=== PATIENT | male | born 1950 | race Caucasian/White ===

== ENCOUNTER 2017-10-26 18:52 | Observation (INO) | payer OTHER ==
[~2017-10-26] VITALS: Ht 182.9 cm; Wt 88.9 kg
[~2017-10-26 18:52] MED LIST: ALLOPURINOL300 MG PO; AMLODIPINE BESYL5 MG PO; ATORVASTATIN CA10 MG PO; ENALAPRIL MALEA20 MG PO; GLIMEPIRIDE2 MG PO; GLIPIZIDE ER10 MG PO; HYDROCHLOROTHIA25 MG PO; LANTUS 3ML100 UNITS/ SQ; METFORMIN HCL1000 MG PO; OMEPRAZOLE40 MG PO; PRAMIPEXOLE D0.25 MG PO; VITAMIN D32000 UNIT PO
[2017-10-26 20:59] LABS: BASOPHILS % 0.4 % (0.0-1.0); BILIRUBIN,URINE NEGATIVE (NEGATIVE); CLARITY,URINE CLEAR (CLEAR); COLOR,URINE YELLOW (YELLOW); EOSINOPHILS # (AUTO) 0.2 (0.0-0.4); EOSINOPHILS % 2.2 % (0.0-6.0); HEMATOCRIT 39.7 % (38.2-49.6); HEMOGLOBIN 13.2 g/dL (14.0-18.0); KETONES,URINE NEGATIVE (NEGATIVE); LEUKOCYTE ESTERASE ,URINE NEGATIVE (NEGATIVE); LYMPHOCYTES # (AUTO) 2.1 (1.0-3.2); LYMPHOCYTES % 20.3 % (18.0-39.1); MEAN CORPUSCULAR HEMOGLOBIN 29.1 pg (28-32); MEAN CORPUSCULAR HGB CONC 33.2 g/dL (31-35); MEAN CORPUSCULAR VOLUME 87.4 fL (81-99); MONOCYTES # (AUTO) 0.7 (0.2-0.8); MONOCYTES % 6.5 % (4.4-11.3); NEUTROPHILS # (AUTO) 7.1 (2.1-6.9); NEUTROPHILS % 69.8 % (38.7-80.0); NITRITE,URINE NEGATIVE (NEGATIVE); PLATELET COUNT 226 x10e3/uL (140-360); PROTEIN,URINE DIPSTICK NEGATIVE (NEGATIVE); RED BLOOD COUNT 4.54 x10e6/uL (4.3-5.7); RED CELL DISTRIBUTION WIDTH 13.7 % (11.7-14.4); URINE UROBILINOGEN 0.2 mg/dL (0.2 - 1)
[2017-10-26 21:03] LABS: MUCUS,URINE MANY (RARE); RBC,URINE 0-5 /HPF (0-5); WBC,URINE (MAN) 0-5 /HPF (0-5)
[2017-10-26 21:09] LABS: INR 0.99; PROTHROMBIN TIME 13.6 seconds (11.9-14.5)
[2017-10-26 21:10] LABS: PARTIAL THROMBOPLASTIN TIME 32.3 seconds (23.8-35.5)
[2017-10-26 21:17] LABS: ALBUMIN 3.7 g/dL (3.5-5.0); ALBUMIN/GLOBULIN RATIO 0.7 (0.8-2.0); ANION GAP 17.9 mmol/L (8-16); CALCIUM 10.2 mg/dL (8.4-10.2); CREATININE, SERUM 1.64 mg/dL (0.72-1.25); POTASSIUM 3.9 mmol/L (3.5-5.1)
[2017-10-26 21:24] LABS: CREATINE KINASE MB 3.8 ng/mL (0.00-5.00)
[2017-10-26] MEDS ORDERED: LEVOFLOXACIN 500 MG TAB PO ONE (21:30)
[2017-10-26] MEDS ORDERED: DEXTROSE 50% SYRINGE 50 ML IV PRN (22:15)
[2017-10-26] MEDS ORDERED: IPRATROPIUM BROMIDE 0.02% 2.5 ML NEB NEB PRN (22:15)
[2017-10-26] MEDS ORDERED: ALBUTEROL SULF 0.083% NEB SOLN 3 ML NEB NEB PRN (22:15)
[2017-10-26] MEDS ORDERED: LEVOFLOXACIN 500MG/D5W 100ML 100 ML IV SCH (22:15)
--- NOTE | 2017-10-26 22:39 | Diagnostic Imaging Report ---
EXAM: CHEST SINGLE (NOT PORTABLE), AP 1 view DATE: 10/26/2017 8:18 PM Time stamp on exam: 2051 INDICATION: Cough, congestion COMPARISON: None available FINDINGS: LINES/TUBES: None LUNGS: Ill-defined nodular density measuring approximately 1.5 cm projected over the right lower lobe. Right lateral lung peripheral reticulation/scarring. Right lower lobe atelectasis. PLEURA: No effusions or pneumothorax. Mild right lateral pleural thickening. HEART AND MEDIASTINUM: The heart is within normal size limits. Nonspecific prominence of the bilateral rohit. BONES AND SOFT TISSUES: No acute findings. IMPRESSION: Nodular density measuring approximately 1.5 cm in the right lung base with adjacent reticulation and pleural thickening. Depending on patient's history, consider CT of the chest with IV contrast to evaluate for lung mass. Signed by: Dr. Jennifer Hyatt M.D. on 10/26/2017 10:35 PM
[2017-10-27] VITALS (9 sets, daily range): BP systolic 108–140; BP diastolic 65–89
--- NOTE | 2017-10-27 02:25 | Diagnostic Imaging Report ---
EXAM: CT CHEST WO DATE: 10/27/2017 1:33 AM Time stamp on exam: O 0142 hours INDICATION: Shortness of breath, cough, congestion COMPARISON: AP view of the chest October 26, 2017 TECHNIQUE: Multidetector CT scanning of the chest was performed. Coronal and sagittal multiplanar reformations were obtained. Routine protocol performed. IV Contrast: None CTDIvol has been reviewed. It is below the limits set by the Radiation Protocol Committee (RPC). FINDINGS: LUNGS AND AIRWAYS: The trachea and major bronchi are unremarkable. Peripheral reticulation and groundglass opacities in the upper lungs, predominantly in the right upper lung and to a lesser extent the right lower lobe. Small consolidation in the right middle lobe (accounts for nodular appearance on prior chest x-ray). PLEURA: No effusions or pneumothorax. HEART, MEDIASTINUM, VESSELS: Normal appearance. No mediastinal mass or lymphadenopathy. UPPER ABDOMEN: Normal MUSCULOSKELETAL: No acute findings. IMPRESSION: Right upper lobe predominant peripheral reticulation and groundglass opacities. Differential includes atypical infection, eosinophilic pneumonia or organizing pneumonia. Signed by: Dr. Jennifer Hyatt M.D. on 10/27/2017 2:22 AM
[2017-10-27] MEDS ORDERED: LEVOFLOXACIN 500MG/D5W 100ML 100 ML IV SCH (04:45)
[2017-10-27] MEDS ORDERED: SODIUM CHLORIDE 0.9% 1000ML 1,000 ML ONE (04:59)
[2017-10-27] MEDS: SODIUM CHLORIDE 0.9% 1000ML 1,000 ML IV SCH ×3 (05:11→21:46)
[2017-10-27 06:19] LABS: BASOPHILS % 0.5 % (0.0-1.0); EOSINOPHILS # (AUTO) 0.3 (0.0-0.4); EOSINOPHILS % 3.5 % (0.0-6.0); HEMATOCRIT 33.9 % (38.2-49.6); HEMOGLOBIN 11.3 g/dL (14.0-18.0); LYMPHOCYTES # (AUTO) 1.7 (1.0-3.2); MEAN CORPUSCULAR HGB CONC 33.3 g/dL (31-35); MEAN CORPUSCULAR VOLUME 86.9 fL (81-99); MONOCYTES # (AUTO) 0.6 (0.2-0.8); MONOCYTES % 7.3 % (4.4-11.3); NEUTROPHILS # (AUTO) 5.2 (2.1-6.9); NEUTROPHILS % 65.9 % (38.7-80.0); PLATELET COUNT 185 x10e3/uL (140-360); RED CELL DISTRIBUTION WIDTH 13.8 % (11.7-14.4)
[2017-10-27 06:45] LABS: ALBUMIN 2.9 g/dL (3.5-5.0); ALBUMIN/GLOBULIN RATIO 0.7 (0.8-2.0); ANION GAP 13.7 mmol/L (8-16); CALCIUM 9.2 mg/dL (8.4-10.2); CREATININE, SERUM 1.48 mg/dL (0.72-1.25); POTASSIUM 3.7 mmol/L (3.5-5.1)
[2017-10-27 06:53] LABS: CREATINE KINASE MB 3.1 ng/mL (0.00-5.00)
[2017-10-27] MEDS: INSULIN REGULAR, HUMAN 100 UNIT/1 ML 3ML VIAL SQ SCH ×5 (07:30→21:46)
[2017-10-27] MEDS ORDERED: ASPIRIN 81 MG ENTERIC COATED PO SCH (09:00)
[2017-10-27] MEDS ORDERED: BENZONATATE 100 MG CAP PO PRN (09:15)
[2017-10-27] MEDS: METHYLPREDNISOLONE SOD SUCC 40 MG/ML VIAL IV SCH ×2 (09:50→21:45)
[2017-10-27] MEDS: DOXYCYCLINE HYCLATE TABLET 100 MG TAB PO SCH ×2 (09:50→16:17)
--- NOTE | 2017-10-27 10:18 | History and Physical ---
PCP: Dr. Alfonso Santa CHIEF COMPLAINT: Cough and shortness of breath for the past week. HISTORY OF PRESENT ILLNESS: The patient is a pleasant, 66-year-old male for the past week having problem with upper respiratory symptoms. The patient basically came to the hospital for evaluation. He was seen by his PCP previously. The patient is otherwise stable at this time. He was having increasing coughing. He was given antibiotics. He came in and was evaluated. CT scan showed atypical pneumonia. The patient is otherwise stable at this time. PAST MEDICAL HISTORY: Hypertension, diabetes, restless legs syndrome. HOME MEDICATIONS: List reviewed. PAST SURGICAL HISTORY: Appendectomy. ALLERGIES: NO KNOWN ALLERGIES. SOCIAL HISTORY: Patient does not smoke or use alcohol. No recreational drugs. REVIEW OF SYSTEMS: Coughing, shortness of breath, wheezing. PHYSICAL EXAMINATION GENERAL: The patient is in no acute distress. He is awake. VITAL SIGNS: Temperature 98. Blood pressure 108/65. Pulse rate 97. Respirations 18. HEENT: Normocephalic, atraumatic. Sclerae anicteric. NECK: Supple grossly. PULMONARY: Diminished breath sounds with coarses and rhonchi. CARDIOVASCULAR: S1 and S2. Regular rate and rhythm. ABDOMEN: Soft, nontender. No distention. EXTREMITIES: No gross cyanosis or edema. NEUROLOGIC: There is no gross focal deficit. LABORATORY: WBC is 7.9, hemoglobin 11.3, hematocrit 33.9, platelets 185. Sodium is 135, potassium 3.7, chloride 100, bicarb 25, BUN 23, creatinine 1.4. Glucose is 226. IMPRESSION 1. Atypical pneumonia. 2. Reactive airway disease. 3. Wheezing. 4. Chest discomfort secondary to cough. PLAN: Continue with antibiotics, Levaquin 750 mg daily and doxycycline 1 mg daily. Nebulizer treatment, steroids, insulin sliding scale coverage. Resume home medications. Will monitor the patient closely. The patient already had echocardiogram ordered. Consultation with Dr. Breen. Job#: [id number]
[2017-10-27] MEDS ORDERED: LEVOFLOXACIN 750MG/D5W 150ML 150 ML IV SCH (15:15)
[2017-10-27 16:07] LABS: CREATINE KINASE MB 2.6 ng/mL (0.00-5.00)
--- NOTE | 2017-10-27 16:21 | Consultation ---
DATE OF CONSULTATION: October 27, 2017 October 27, 2017 CONSULTING PHYSICIAN: Dr. Tom Brown. REASON FOR CONSULTATION: Chest pain. HPI: This is a pleasant 66-year-old male that presented with shortness of breath, sore throat, and cough. According to him, for the last 2 weeks, he has been having sore throat, productive cough, chest pain on a scale of 5/10 with no radiation that felt like tightness, that he went to his PCP. At the PCP office, they did an EKG that shows sinus bradycardia with right bundle branch block and he was sent to the emergency room for evaluation. He denies any palpitation, any dizziness, or any diaphoresis. Troponin times 2 was negative. EKG showed normal sinus rhythm with right bundle branch block. BNP was 841. He did a chest x-ray that is showing some nodule density measuring 1.5 cm on the right lung base and CK was elevated. PAST MEDICAL HISTORY: Hypertension, gout, diabetes and hyperlipidemia. PAST SURGICAL HISTORY: Right rotator cuff surgery and appendectomy. FAMILY HISTORY: Positive for diabetes. SOCIAL HISTORY: No smoking, no drinking. Lives at home with . MEDICATIONS: See med list. ALLERGIES: HE IS NOT ALLERGIC TO ANY MEDICATION. REVIEW OF SYSTEMS: Negative except those mentioned above. PHYSICAL EXAMINATION VITAL SIGNS: Temperature 98, heart rate 90, blood pressure 112/77, respirations 18, oxygen saturation 96% on 2 liters nasal cannula. GENERAL: He is awake, alert, and oriented times 3. HEENT: Mucous membrane moist. NECK: Supple. LUNGS: Bilateral with decreased breath sounds. CARDIOVASCULAR: S1, S2 present. ABDOMEN: Soft. NEUROLOGIC: Intact. EXTREMITIES: With no edema. LABORATORY DATA: Sodium 135, potassium 3.7, chloride 100, CO2 of 25, BUN 23, creatinine 1.48, glucose 226. White blood cells 7.92, hemoglobin 11.3, hematocrit 33.9, platelet 185. PT 13.6, PTT 32.3, INR 0.99. IMPRESSION 1. Pneumonia. 2. Chest pain. 3. Possible congestive heart failure. 4. Renal insufficiency. 5. Diabetes. 6. Hypertension. ASSESSMENT AND PLAN: Will get an echo to assess the LV and the valve function. Will continue antibiotic per PCP. Will put him on some Lasix. Possible cardiac stress test down the line when he is stable. Further cardiac workup pending clinical course. Thank you for this consultation. DICTATED BY: ISH LITTLE NP Job#: [id number] PAT
[2017-10-27] MEDS ORDERED: PRAMIPEXOLE DIHYDROCHLORIDE 0.25 MG TAB PO SCH (21:00)
[2017-10-27] MEDS ORDERED: ATORVASTATIN 10 MG TAB PO SCH (21:00)
[2017-10-28] VITALS: BP 108/71
[2017-10-28] MEDS: ALBUTEROL/IPRATROPIUM 3 ML NEB NEB SCH ×2 (01:30→07:32)
[2017-10-28 04:00] VITALS: BP 122/85
[2017-10-28 06:10] LABS: BASOPHILS % 0.1 % (0.0-1.0); HEMATOCRIT 34.7 % (38.2-49.6); HEMOGLOBIN 11.4 g/dL (14.0-18.0); LYMPHOCYTES # (AUTO) 0.8 (1.0-3.2); LYMPHOCYTES % 8.2 % (18.0-39.1); MEAN CORPUSCULAR HEMOGLOBIN 28.6 pg (28-32); MEAN CORPUSCULAR HGB CONC 32.9 g/dL (31-35); MEAN CORPUSCULAR VOLUME 87.2 fL (81-99); MONOCYTES # (AUTO) 0.4 (0.2-0.8); MONOCYTES % 4.5 % (4.4-11.3); NEUTROPHILS # (AUTO) 8.4 (2.1-6.9); NEUTROPHILS % 86.4 % (38.7-80.0); PLATELET COUNT 187 x10e3/uL (140-360); RED BLOOD COUNT 3.98 x10e6/uL (4.3-5.7); RED CELL DISTRIBUTION WIDTH 13.4 % (11.7-14.4)
[2017-10-28 06:38] LABS: ANION GAP 11.3 mmol/L (8-16); CALCIUM 9.1 mg/dL (8.4-10.2); CREATININE, SERUM 1.44 mg/dL (0.72-1.25); POTASSIUM 4.3 mmol/L (3.5-5.1)
[2017-10-28] MEDS ORDERED: PANTOPRAZOLE SOD 40 MG TABEC PO SCH (07:30)
[2017-10-28 07:49] VITALS: BP 126/68
[2017-10-28 08:11] VITALS: BP 126/68
[2017-10-28] MEDS: INSULIN REGULAR, HUMAN 100 UNIT/1 ML 3ML VIAL SQ SCH (08:42)
[2017-10-28] MEDS ORDERED: ALBUTEROL SULF 0.083% NEB SOLN 3 ML NEB NEB PRN (08:45)
[2017-10-28] MEDS: METHYLPREDNISOLONE SOD SUCC 40 MG/ML VIAL IV SCH (08:56)
[2017-10-28] MEDS: DOXYCYCLINE HYCLATE TABLET 100 MG TAB PO SCH (08:57)
[2017-10-28] MEDS ORDERED: FUROSEMIDE INJ 10 MG/ML 2 ML VIAL IV SCH (09:00)
[2017-10-28] MEDS ORDERED: GLIMEPIRIDE 2 MG TAB PO SCH (09:00)
[2017-10-28] MEDS ORDERED: AMLODIPINE BESYLATE 5 MG TAB PO SCH (09:00)
[2017-10-28] MEDS ORDERED: ALLOPURINOL 300 MG TAB PO SCH (09:00)
[2017-10-28] MEDS ORDERED: ASPIRIN 81 MG ENTERIC COATED PO SCH (09:00)
[2017-10-28] MEDS ORDERED: METOPROLOL TARTRATE 25 MG TAB PO SCH (09:00)
[2017-10-28] MEDS ORDERED: INSULIN DETEMIR 100 UNIT/ML PEN SQ ONE (09:00)
--- NOTE | 2017-10-28 09:26 | Discharge Summary ---
PCP: Dr. Alfonso Santa UMBRELLA REPAIRER: Dr. Martin Breen FINAL DIAGNOSES: 1. Atypical pneumonia. 2. Dehydration. 3. Shortness of breath, much improved. SUMMARY: Patient is a 66-year-old male came in with basically pneumonia. CT scan showing that the patient has right upper lobe predominant peripheral reticular and ground-glass opacity consistent with infection, atypical pneumonia. Patient has responded to antibiotics. He is doing much better now. He is breathing much better. Cough has significantly improved. The patient is stable at this time. He had no chest pain. Patient will go home with the following instructions: Resume his home medications except for Norvasc 2.5 mg and hydrochlorothiazide. New prescriptions as follows: 1. Glucotrol XL 5 mg daily. 2. Norvasc 10 mg daily. 3. Levaquin 500 mg daily for 7 days. 4. Doxycycline monohydrate 100 mg twice a day for 7 days. 5. Cheratussin AC q.4h. p.r.n. for cough. 6. Mucinex 600 mg twice a day. 7. Proventil HFA 2 puffs q.4h. as needed for shortness of breath. 8. Prednisone 10 mg daily for 3 days. Discussed with the patient at length. He does want to go home. He can follow up with Dr. Breen as an outpatient for stress test if needed. The patient is otherwise stable. He will follow up with Dr. Breen. Echocardiogram showed 60% EF. Patient is stable and discharged home today. Job#: [id number]
[2017-10-28 11:40] VITALS: BP 124/70
[2017-12-09] MEDS ORDERED: AMLODIPINE BESY10 MG PO (17:56)
[2017-12-09] MEDS ORDERED: HYDROCHLOROTHIA25 MG PO (17:56)
[2017-12-09] MEDS ORDERED: ASPIRIN325 MG PO (17:56)
== END 2017-10-28 11:14 | disposition home or self-care (01) ==
LOC: ER 18:52 → ERHOLD 10-27 00:51 → UNDOADMOB 10-27 00:51 → ERHOLD 10-27 00:58 → IMCU 10-27 02:46
PROVIDERS: ADMIT Internal Medicine; ATTEND Internal Medicine
DX: J18.9 Pneumonia, unspecified organism (principal); J45.909 Unspecified asthma, uncomplicated; I10 Essential (primary) hypertension; E11.9 Type 2 diabetes mellitus without complications; E78.5 Hyperlipidemia, unspecified; N28.9 Disorder of kidney and ureter, unspecified; E86.0 Dehydration
CPT/HCPCS: 36415 ×3; 71010; 71250; 80048; 80053 ×2; 81001; 82550 ×2; 82553 ×2; 82948 ×2; 83690; 83735; 83880; 84484 ×2; 85025 ×3; 85610; 85730; 87070; 87086; 87205; 87400; 93005; 93306; 94640; 96361; 99284; G0378 ×2; J1940; J1956; J2920 ×2; J7030; 71045

== ENCOUNTER → 2017-11-19 | Outpatient (CLI) | payer OTHER ==
--- NOTE | 2017-11-19 08:46 | Diagnostic Imaging Report ---
PROCEDURE:CT CHEST WITHOUT CONTRAST COMPARISON:[facility], CT, CT CHEST WO, 10/27/2017, 1:40. INDICATIONS:Pneumonia TECHNIQUE: Routine protocol Volumetric CT abdomen and pelvis. No intravenous or enteric contrast. Multiplanar reformatted images. DLP: 533.88 mGy*cm FINDINGS: Lungs: Interval decrease in right upper lobe groundglass opacity, with interval development of peripheral, nodular left upper lobe groundglass opacity measuring about 1.6 x 1.8 cm (image 41, series 3). Interval increase and right lower lobe groundglass opacity (image 83, series 3) Focal consolidative airspace opacity within the peripheral right middle lobe (image 58, series 3) is unchanged. Airways: Mild diffuse bronchial wall thickening without bronchiectasis. Airways are patent. Pleura: Trace right pleural effusion versus focal pleural thickening (image 75, series 2) the increased from October 27, 2017 Lymph nodes: Normal Pulmonary arteries: Main pulmonary artery diameter 3.5 cm. Mild prominence of the intraparenchymal pulmonary arteries. Thoracic aorta and great vessels: Normal caliber. Mild prominence of the azygos vein. Heart and pericardium: Normal size. No pericardial effusion. Mild left anterior descending, circumflex and right coronary artery calcification. Subdiaphragmatic organs: Hepatomegaly. Spleen length 13 cm. Otherwise, normal Skeleton: Intact. Soft tissues: Normal CONCLUSION: Relative to October 27, 2017 there is interval development of new foci of groundglass opacity primarily within the peripheral left upper and right lower lobes, while right upper lobe groundglass opacity has decreased. Consolidative airspace opacity within the right middle lobe is stable. Overall, the findings continue to suggest organizing pneumonia, eosinophilic pneumonia or hypersensitivity pneumonitis. Dictated by: Vahe Okeefe M.D. on 11/19/2017 at 8:56 Electronically approved by: Vahe Okeefe M.D. on 11/19/2017 at 8:56
== END ==
LOC: RESP 07:18
PROVIDERS: ATTEND Internal Medicine
DX: R06.09 Other forms of dyspnea (principal)
CPT/HCPCS: 71250

== ENCOUNTER → 2017-12-10 | Day surgery (SDC) | payer OTHER ==
[2017-12-09 15:58] LABS: BASOPHILS # (AUTO) 0.1 (0.0-0.1); BASOPHILS % 0.5 % (0.0-1.0); EOSINOPHILS # (AUTO) 0.8 (0.0-0.4); HEMATOCRIT 34.1 % (38.2-49.6); HEMOGLOBIN 11.1 g/dL (14.0-18.0); LYMPHOCYTES # (AUTO) 1.6 (1.0-3.2); LYMPHOCYTES % 14.4 % (18.0-39.1); MEAN CORPUSCULAR HGB CONC 32.6 g/dL (31-35); MEAN CORPUSCULAR VOLUME 85.9 fL (81-99); MONOCYTES # (AUTO) 0.8 (0.2-0.8); NEUTROPHILS # (AUTO) 7.7 (2.1-6.9); NEUTROPHILS % 69.3 % (38.7-80.0); PLATELET COUNT 330 x10e3/uL (140-360); RED BLOOD COUNT 3.97 x10e6/uL (4.3-5.7)
[2017-12-09 16:10] LABS: INR 1.18; PARTIAL THROMBOPLASTIN TIME 30.9 seconds (23.8-35.5); PROTHROMBIN TIME 14.1 seconds (11.9-14.5)
[~2017-12-10] MED LIST changes: +AMLODIPINE BESY10 MG PO; +ASPIRIN325 MG PO; +EPINEPHRINE HCL INJ 1 MG/ML AMP ONE; +KETAMINE HCL INJ 50 MG/ML 10 ML VIAL ONE; +LIDOCAINE HCL 2% LOCAL INJ 5 ML SDV VIAL INJ ONE; +LIDOCAINE HCL 4% 50 ML BTL ONE; +LIDOCAINE JELLY 2% 10ML URO-JET ONE; +MIDAZOLAM HCL 2 MG/2 ML VIAL ONE; +OXYMETAZOLINE HCL 0.05% NAS 1 SPRAY BTL ONE; +PROPOFOL IV EMULSION 10 MG/ML 20 ML VIAL ONE; +SEVOFLURANE INHAL SOLN 250 ML PEN BTL ONE
--- OUTSIDE RECORDS SUMMARY | 2017-12-10 08:53 | XMS REPORT ---
Author Author [facility] Address Unknown Phone Unavailable Care Team Providers Care [facility] [place] Name Role Phone KEVIN SARGENT Unavailable Unavailable HIRAM ANDREWS Unavailable Unavailable LOUIS DENNY Unavailable Unavailable Problems This patient has no known problems. Allergies, Adverse Reactions, Alerts This patient has no known allergies or adverse reactions. Medications This patient has no known medications. Results Test Description Test Time Test Comments Text Results Atomic Results Result Comments CT CHEST WO [place] [address] Patient Name: ZAC HDEZ MR #: [id number] : 1950 Age/Sex: 66/M Req # : [id number] Adm Physician: Ordered by: KEVIN SARGENT MD Report #: [id number] Location: [facility] Room/Bed: Procedure: [id number] CT/CT CHEST WO Exam Date: 11/19/17 Exam Time: 0820 REPORT STATUS: Signed PROCEDURE: CT CHEST WITHOUT CONTRAST COMPARISON: [facility], CT, CT CHEST WO, 10/27/2017, 1:40. INDICATIONS: Pneumonia TECHNIQUE: Routine protocol Volumetric CT abdomen and pelvis. No intravenous or enteric contrast. Multiplanar reformatted images. DLP: 533.88 mGy*cm FINDINGS: Lungs: Interval decrease in right upper lobe groundglass opacity, with interval development of peripheral , nodular left upper lobe groundglass opacity measuring about 1.6 x 1.8 cm ( image 41, series 3). Interval increase and right lower lobe groundglass opacity (image 83, series 3) Focal consolidative airspace opacity within the peripheral right middle lobe (image 58, series 3) is unchanged. Airways : Mild diffuse bronchial wall thickening without bronchiectasis. Airways are patent. Pleura: Trace right pleural effusion versus focal pleural thickening (image 75, series 2) the increased from October 27, 2017 Lymph nodes: Normal Pulmonary arteries: Main pulmonary artery diameter 3.5 cm. Mild prominence of the intraparenchymal pulmonary arteries. Thoracic aorta and great vessels: Normal caliber. Mild prominence of the azygos vein. Heart and pericardium: Normal size. No pericardial effusion. Mild left anterior descending, circumflex and right coronary artery calcification. Subdiaphragmatic organs: Hepatomegaly. Spleen length 13 cm. Otherwise, normal Skeleton: Intact. Soft tissues: Normal CONCLUSION: Relative to October 27, 2017 there is interval development of new foci of groundglass opacity primarily within the peripheral left upper and right lower lobes, while right upper lobe groundglass opacity has decreased. Consolidative airspace opacity within the right middle lobe is stable. Overall, the findings continue to suggest organizing pneumonia, eosinophilic pneumonia or hypersensitivity pneumonitis. Dictated by: Dee Okeefe M.D. on 11/19/2017 at 8:56 Electronically approved by: Dee Okeefe M.D. on 11/19/2017 at 8:56 Dictated By: DEE OKEEFE MD 5 Transcribed By: KEY on 11/19/17 08 COPY TO: KEVIN SARGENT MD CT CHEST WO [place] [address] Patient Name: ZAC HDEZ MR #: [id number] : 1950 Age/Sex: 66/M Req # : [id number] Adm Physician: HIRAM ANDREWS MD Ordered by: FREDDY GONZALEZ MD Report #: [id number] Location: [facility] Room/Bed: [place] [address] __ Procedure: [id number] CT/CT CHEST WO Exam Date: 10/27/17 Exam Time: 0140 REPORT STATUS: Signed EXAM: CT CHEST WO DATE: 10/27/2017 1:33 AM Time stamp on exam: O 0142 hours INDICATION: Shortness of breath, cough, congestion COMPARISON: AP view of the chest October 26, 2017 TECHNIQUE: Multidetector CT scanning of the chest was performed. Coronal and sagittal multiplanar reformations were obtained. Routine protocol performed. IV Contrast: None CTDIvol has been reviewed. It is below the limits set by the Radiation Protocol Committee (RPC). FINDINGS: LUNGS AND AIRWAYS: The trachea and major bronchi are unremarkable. Peripheral reticulation and groundglass opacities in the upper lungs, predominantly in the right upper lung and to a lesser extent the right lower lobe. Small consolidation in the right middle lobe (accounts for nodular appearance on prior chest x-ray). PLEURA: No effusions or pneumothorax. HEART, MEDIASTINUM, VESSELS: Normal appearance. No mediastinal mass or lymphadenopathy. UPPER ABDOMEN: Normal MUSCULOSKELETAL: No acute findings. IMPRESSION: Right upper lobe predominant peripheral reticulation and groundglass opacities. Differential includes atypical infection, eosinophilic pneumonia or organizing pneumonia. Signed by: Dr. Horace Espinoza M.D. on 10/27/2017 2:22 AM Dictated By: HORACE ESPINOZA MD 1 Transcribed By: FREDY on 10/27/17221 COPY TO: FREDDY GONZALEZ MD CHEST [facility] (NOT PORTABLE) [place] [address] Patient Name: ZAC HDEZ MR #: [id number] : 1950 Age/Sex: 66/M Req #: [id number] Adm Physician: Ordered by: SHAILESH WEBER SEWING MACHINIST Report #: [id number] Location: ER Room/Bed: Procedure: [id number] DX/CHEST SINGLE (NOT PORTABLE) Exam Date: 10/26/17 Exam Time: 2044 REPORT STATUS: Signed EXAM: CHEST SINGLE (NOT PORTABLE), AP 1 view DATE: 10/26/2017 8:18 PM Time stamp on exam: 2051 hours INDICATION: Cough, congestion COMPARISON: None available FINDINGS: LINES/TUBES: None LUNGS: Ill-defined nodular density measuring approximately 1.5 cm projected over the right lower lobe. Right lateral lung peripheral reticulation/scarring. Right lower lobe atelectasis. PLEURA: No effusions or pneumothorax. Mild right lateral pleural thickening. HEART AND MEDIASTINUM: The heart is within normal size limits. Nonspecific prominence of the bilateral rohit. BONES AND SOFT TISSUES: No acute findings. IMPRESSION: Nodular density measuring approximately 1.5 cm in the right lung base with adjacent reticulation and pleural thickening. Depending on patient's history, consider CT of the chest with IV contrast to evaluate for lung mass. Signed by: Dr. Horace Espinoza M.D. on 10/26 10:35 PM Dictated By: HORACE ESPINOZA MD 34 Transcribed By: FREDY on 10/26/172234 COPY TO: SHAILESH WEBER SEWING MACHINIST CHEST 2 VIEWS [place] [address] Patient Name: ZAC HDEZ MR #: [id number] : 1950 Age/Sex: 66/M Req # : [id number] Adm Physician: Ordered by: LOUIS DENNY MD Report #: [id number] Location: OR Room/Bed: Procedure: [id number] DX/CHEST 2 VIEWS Exam Date: Exam Time: REPORT STATUS: Signed PROCEDURE: X-RAY CHEST, TWO VIEWS COMPARISON: None. INDICATIONS: PRE-OP. DENIES CHEST COMPLAINTS FINDINGS: The lungs are well-inflated. No focal airspace consolidation, pleural effusion, or pneumothorax. Cardiomediastinal contour and pulmonary vasculature are within normal limits. Rightward tracheal deviation at the thoracic inlet. No acute osseous abnormality. CONCLUSION: No acute cardiopulmonary abnormality. Mild rightward deviation of the trachea at the thoracic inlet may be related to hypertrophy of the left lobe of the thyroid. Further evaluation may be obtained with ultrasound if clinically warranted. Dictated by: Sil Bowman M.D. on 07/27/2017 at 14:23 Electronically approved by: Sil Bowman M.D. on 07/27/2017 at 14:23 Dictated By: SIL BOWMAN MD 1423 Transcribed By: KEY on 07/27/17 1423 COPY TO: LOUIS DENNY MD
[2017-12-10 09:54] LABS: BASOPHILS # (AUTO) 0.1 (0.0-0.1); BASOPHILS % 0.4 % (0.0-1.0); EOSINOPHILS # (AUTO) 0.8 (0.0-0.4); EOSINOPHILS % 6.9 % (0.0-6.0); LYMPHOCYTES % 17.2 % (18.0-39.1); MEAN CORPUSCULAR HEMOGLOBIN 28.3 pg (28-32); MEAN CORPUSCULAR HGB CONC 32.4 g/dL (31-35); MEAN CORPUSCULAR VOLUME 87.4 fL (81-99); MONOCYTES # (AUTO) 0.7 (0.2-0.8); MONOCYTES % 5.7 % (4.4-11.3); NEUTROPHILS # (AUTO) 7.7 (2.1-6.9); NEUTROPHILS % 67.7 % (38.7-80.0); PLATELET COUNT 348 x10e3/uL (140-360); RED BLOOD COUNT 3.89 x10e6/uL (4.3-5.7); RED CELL DISTRIBUTION WIDTH 14.1 % (11.7-14.4)
[2017-12-10 10:13] LABS: INR 1.27; PROTHROMBIN TIME 14.9 seconds (11.9-14.5)
[2017-12-10 10:14] LABS: PARTIAL THROMBOPLASTIN TIME 35.7 seconds (23.8-35.5)
[2017-12-10 12:17] LABS: EOSINOPHILS % (MANUAL) 7 % (0-7); LYMPHOCYTES % (MANUAL) 17 % (19-48); MONOCYTES % (MANUAL) 4 % (3.4-9.0); NEUTROPHILS % (MANUAL) 72 % (40-74)
[2017-12-10 12:21] LABS: ANISOCYTOSIS SLIGHT; HYPOCHROMASIA SLIGHT; POIKILOCYTOSIS SLIGHT
[2017-12-10 12:22] LABS: PLATELET ESTIMATE ADEQUATE; PLATELET MORPHOLOGY COMMENT NORMAL; RBC MORPHOLOGY COMMENT NORMAL
--- NOTE | 2017-12-10 12:44 | Operative Report ---
DATE OF PROCEDURE: December 10, 2017 PROCEDURE PERFORMED: Bronchoscopy with bronchoalveolar lavage. PREPROCEDURE DIAGNOSIS: Abnormal CT chest. POSTPROCEDURE DIAGNOSIS: Normal endobronchial airways. ANESTHESIA: General. PROCEDURE DETAILS: The bronchoscope was advanced through LMA. The vocal cords were identified. They were moving normally. The trachea was entered, which was normal. Both lungs were examined to the segmental level, and no endobronchial lesions were seen. BAL was done from right middle lobe, and it was sent for cell count, AFB, fungus, Gram stain and culture. COMPLICATIONS: None. Job#: [id number]
--- NOTE | 2017-12-10 12:56 | History and Physical ---
The patient is here for a bronchoscopy. HPI: Mr. Tillman is a 67-year-old male who had pneumonia in the beginning of October and was having increasing symptoms with cough. Repeat CT showed evidence of ground-glass nodule with area of consolidation. Today he will undergo bronchoscopy. PAST MEDICAL HISTORY: Hypertension, diabetes, hyperlipidemia. PAST SURGICAL HISTORY: Right rotator cuff surgery and appendectomy. FAMILY AND SOCIAL HISTORY: He does not smoke. He does not drink. He lives with . PHYSICAL EXAMINATION VITAL SIGNS: Temperature 97.8, pulse 74, blood pressure 124/70. CHEST: Clear. ABDOMEN: Soft. EXTREMITIES: No clubbing, cyanosis or edema. NEUROLOGIC: Awake, alert. No focal neurological deficit. EXTREMITIES: No pedal edema. LABS: White count 11,000, hemoglobin 11.0, platelets 348. Last chemistry is from October 2017. Creatinine was 1.4. ASSESSMENT: Mr. Tillman is a 67-year-old male here for bronchoscopy. PLAN: Bronchoscopy will be performed today. Job#: [id number]
[2017-12-10 13:36] LABS: RBC,BODY FLUID 522 cells/uL; WBC,BODY FLUID 110 cells/uL
[2017-12-10 13:37] LABS: BODY FLUID APPEARANCE SL.CLOUDY; BODY FLUID TYPE BRONCHIAL WASHING
[2017-12-10 14:59] LABS: LYMPHOCYTES,BODY FLUID 18 %; MONO/MACROPHG,BODY FLUID 5 %; OTHER CELLS,BODY FLUID 67 %
[2017-12-10 15:02] LABS: NEUTROPHILS,BODY FLUID 10 %
== END | disposition home or self-care (01) ==
LOC: ENDO 08:51
PROVIDERS: ATTEND Internal Medicine
DX: R91.8 Other nonspecific abnormal finding of lung field (principal); J84.89 Other specified interstitial pulmonary diseases; I10 Essential (primary) hypertension; E11.9 Type 2 diabetes mellitus without complications; K75.9 Inflammatory liver disease, unspecified; B19.20 Unspecified viral hepatitis C without hepatic coma; I45.10 Unspecified right bundle-branch block; Z01.812 Encounter for preprocedural laboratory examination; Z79.82 Long term (current) use of aspirin
CPT/HCPCS: 31624; 36415 ×2; 82948; 85025 ×2; 85610 ×2; 85730 ×2; 87102; 87116 ×2; 87205; 87206 ×3; 87335; 89051; J2001; J2250; 31623; 88112; 88305; J0171

== ENCOUNTER 2020-08-31 | Emergency (ER) | payer MEDICARE, OTHER ==
[~2020-08-31] VITALS: Ht 182.9 cm; Wt 105.2 kg
[~2020-08-31] MED LIST changes: -EPINEPHRINE HCL INJ 1 MG/ML AMP ONE; -KETAMINE HCL INJ 50 MG/ML 10 ML VIAL ONE; -LIDOCAINE HCL 2% LOCAL INJ 5 ML SDV VIAL INJ ONE; -LIDOCAINE HCL 4% 50 ML BTL ONE; -LIDOCAINE JELLY 2% 10ML URO-JET ONE; -MIDAZOLAM HCL 2 MG/2 ML VIAL ONE; -OXYMETAZOLINE HCL 0.05% NAS 1 SPRAY BTL ONE; -PROPOFOL IV EMULSION 10 MG/ML 20 ML VIAL ONE; -SEVOFLURANE INHAL SOLN 250 ML PEN BTL ONE
[2020-08-31] MEDS ORDERED: SODIUM CHLORIDE 0.9% 1000ML 1,000 ML IV STA (00:15)
[2020-08-31 00:21] LABS: BASOPHILS # (AUTO) 0.1 (0.0-0.1); BASOPHILS % 0.7 % (0.0-1.0); EOSINOPHILS # (AUTO) 0.2 (0.0-0.4); HEMATOCRIT 39.9 % (38.2-49.6); HEMOGLOBIN 13.4 g/dL (14.0-18.0); LYMPHOCYTES # (AUTO) 3.3 (1.0-3.2); LYMPHOCYTES % 26.9 % (18.0-39.1); MEAN CORPUSCULAR HEMOGLOBIN 30.7 pg (28-32); MEAN CORPUSCULAR HGB CONC 33.6 g/dL (31-35); MEAN CORPUSCULAR VOLUME 91.5 fL (81-99); MONOCYTES # (AUTO) 0.9 (0.2-0.8); MONOCYTES % 7.7 % (4.4-11.3); NEUTROPHILS # (AUTO) 7.6 (2.1-6.9); NEUTROPHILS % 61.8 % (38.7-80.0); PLATELET COUNT 179 x10e3/uL (140-360); RED BLOOD COUNT 4.36 x10e6/uL (4.3-5.7); RED CELL DISTRIBUTION WIDTH 13.5 % (11.7-14.4)
--- NOTE | 2020-08-31 00:22 | Emergency Department Note ---
History of Present Illnes History of Present Illness History of Present Illness This is a 69 year old male here with concern of generalized weakness/dizziness with lower abdominal pain and constipation. Patient states that he's been constipated over the last week or so, he is taking mineral oil enema without resolution. Patient told his PCP who got him a GI appointment for colonoscopy. Patient has a colonoscopy appointment in September. Patient was told to take fiber, has not taken fiber. Patient with mild to moderate abdominal pain, no modifying factors. Patient also with generalized weakness/dizziness, no neurologic deficits, no ataxia, feels like he is "dehydrated". No chest pain or shortness of breath, no syncope. Historian: Patient Arrival Mode: Car Onset (how long ago): week(s) (1) Location: lower abd Quality: ache Radiation: Reports non-radiation Severity: moderate Onset quality: gradual Duration (how long): week(s) (1) Timing of current episode: constant Progression: worsening Chronicity: new Context: Reports new medications, Reports non-compliance w/ medications Relieving factors: none Exacerbating factors: none Associated symptoms: Reports denies other symptoms, Reports other (no urinary complaints, last BM was 1 day ago); Denies fever/chills, Denies nausea/vomiting Past Medical/Family History Physician Review I have reviewed the patient's past medical and family history. Any updates have been documented here. Past Medical History Other Medical History: GOUT, CHOLESTEROL Other Last Tetanus: NA Review of Systems Review of Systems Constitutional: Reports as per HPI EENTM: Reports no symptoms Cardiovascular: Reports no symptoms Respiratory: Reports no symptoms Gastrointestinal: Reports as per HPI Genitourinary: Reports no symptoms Musculoskeletal: Reports no symptoms Integumentary: Reports no symptoms Neurological: Reports no symptoms Psychological: Reports no symptoms Endocrine: Reports no symptoms Hematological/Lymphatic: Reports no symptoms Physical Exam Related Data Allergies: Coded Allergies: No Known Allergies (Unverified , 07/03/13) Vital signs reviewed: Yes Physical Exam CONSTITUTIONAL Constitutional: Present well-developed, Present well-nourished HENT HENT: Present normocephalic, Present atraumatic, Present oropharynx clear/moist, Present nose normal HENT L/R: Present left ext ear normal, Present right ext ear normal EYES Eyes: Reports PERRL, Reports conjunctivae normal NECK Neck: Present ROM normal PULMONARY Pulmonary: Present effort normal, Present breath sounds normal CARDIOVASCULAR Cardiovascular: Present regular rhythm, Present heart sounds normal, Present capillary refill normal, Present normal rate GASTROINTESTINAL Abdominal: Present soft, Present bowel sounds normal, Present tender (chest superficial lower abdomen or peritonitis.) GENITOURINARY Genitourinary: Present exam deferred SKIN Skin: Present warm, Present dry MUSCULOSKELETAL Musculoskeletal: Present ROM normal NEUROLOGICAL Neurological: Present alert, Present oriented x 3, Present no gross motor or sensory deficits PSYCHOLOGICAL Psychological: Present mood/affect normal, Present judgement normal Results Laboratory Lab results reviewed: Yes Imaging Imaging results reviewed: Yes Assessment & Plan Medical Decision Making MDM Since a 69-year-old male that comes in with lower abdominal pain and difficulty passing stool for the last week. We'll do lab work, CT of the abdomen given his pain. A CT is normal and labs are normal, we'll prescribe MiraLAX for his constipation. Patient also with generalized weakness and fatigue, we'll check electrolytes and CBC to rule out anemia and a cardiac workup. EKG interpreted by me shows normal sinus rhythm with a right bundle branch morphology QRS prolonged at 148 normal axis EKG otherwise nondiagnostic. No neurologic deficits, patient feels "dehydrated ". We'll hydrate patient, ambulate Reassessment Reassessment Patient has been using the restroom 2 here, we'll continue treatment at home.If to return if worsening. Pt with resolution of dizziness after fluids. Assessment & Plan Final Impression: (1) Abdominal pain (2) Constipation by delayed colonic transit (3) Dizziness (4) Hyperglycemia Depart Disposition: HOME, SELF-USP Meds Active Scripts Peg 3350/Na Sulf,Bicarb,Cl/Kcl (GOLYTELY SOLUTION) 4,000 Ml Soln.recon, 4000 ML PO as directed for 1 Day, #4000 ML Prov:LEONOR ANTOINE MD 08/31/20 Reported Medications Aspirin (ASPIRIN) 325 Mg Tablet, 325 MG PO DAILY, #30 TAB 12/09/17 Amlodipine Besylate (AMLODIPINE BESYLATE) 10 Mg Tablet, 10 MG PO BID, #30 TAB 12/09/17 Hydrochlorothiazide (HYDROCHLOROTHIAZIDE) 25 Mg Tablet, 25 MG PO DAILY, #30 TAB 12/09/17 Glimepiride (GLIMEPIRIDE) 2 Mg Tablet, 1 MG PO DAILY, TAB 07/28/17 Pramipexole Di-Hcl (PRAMIPEXOLE DIHYDROCHLORIDE) 0.25 Mg Tablet, 0.5 MG PO HS 07/28/17 Cholecalciferol (Vitamin D3) (VITAMIN D3) 2,000 Unit Capsule, 2000 UNIT PO BID 07/28/17 Omeprazole (OMEPRAZOLE) 40 Mg Capsule.dr, 40 MG PO DAILY 07/28/17 Atorvastatin Calcium (ATORVASTATIN CALCIUM) 10 Mg Tablet, 10 MG PO 2100, #30 TAB 07/28/17 Metformin Hcl (METFORMIN HCL) 1,000 Mg Tablet, 1000 MG PO BID 07/08/13 Enalapril Maleate (ENALAPRIL MALEATE) 20 Mg Tablet, 20 MG PO BID 07/03/13 Allopurinol (ALLOPURINOL) 300 Mg Tablet, 300 MG PO DAILY 07/03/13 Medications in the ED Sodium Chloride 1,000 ml @ 0 mls/hr Q0M STAT IV ; Start 08/31/20 at 00:15; Stop 08/31/20 at 00:16 LEONOR ANTOINE MD Aug 31, 2020 00:22
[2020-08-31 00:41] LABS: ALBUMIN 4.4 g/dL (3.5-5.0); ALBUMIN/GLOBULIN RATIO 1.1 (0.8-2.0); ANION GAP 16.5 mmol/L (8-16); CALCIUM 9.9 mg/dL (8.4-10.2); CREATININE, SERUM 1.47 mg/dL (0.72-1.25); POTASSIUM 4.5 mmol/L (3.5-5.1)
[2020-08-31] MEDS ORDERED: IOPAMIDOL 370 MG/ML 200 ML INFUS..BTL INJ ONE (01:08)
[2020-08-31] MEDS ORDERED: SODIUM CHLORIDE 0.9% 50ML 50 ML ONE (01:08)
--- OUTSIDE RECORDS SUMMARY | 2020-08-31 02:05 | XMS REPORT | Continuity of Care Document ---
Author Author [facility] t Organization [facility] Address [address] [place] [address] Phone Unavailable Care Team Providers Care Gas Plumbing Inspector Name Role Phone KEVIN SARGENT Attphys Unavailable JEANG, K HIRAM Attphys Unavailable LOUIS DENNY Attphys Unavailable JEANG, K HIRAM Admphys Unavailable Payers Payer Name Policy Type Policy Number Effective Date Expiration Date S ource Problems This patient has no known problems. Allergies, Adverse Reactions, Alerts Allergy Name Allergy Type Status Severity Reaction(s) Onset Date Inacti ve Date Treating Clinician Comments Source No Known Allergies DA Active U 2019-05-21 00:00:00 [facility] No Known Allergies DA Active U 2016-04-30 00:00:00 [facility] Medications This patient has no known medications. Procedures This patient has no known procedures. Results Test Description Test Time Test Comments Results Result Comments Source GLUBED 2020-02-19 20:37:00 Test Item GLUBED (test code = GLUBED) 334 mg/dL 74-106 H Performed by certified control operator at [facility] [id number] 20:00:00* Test Item Value Reference Range Interpretation Comments GLUBED (test code = GLUBED) 367 mg/dL 74-106 H Performed by certified control operator at [facility] [id number] 19:03:00* Test Item Value Reference Range Interpretation Comments LIPASE (test code = LIP) 198 U/L 128-270 N URINALYSIS W/O [id number] 19:02:00* Test Item Value Reference Range Interpretation Comments UA COLOR (test code = COLU) YELLOW YELLOW UA APPEARANCE (test code = APPU) CLEAR CLEAR UA GLUCOSE DIPSTICK (test code = DGLUU) 1000 (3+) mg/dL NEGATIVE A UA BILIRUBIN DIPSTICK (test code = BILU) NEGATIVE mg/dL NEGATIVE UA KETONE DIPSTICK (test code = KETU) neg mg/dL NEGATIVE UA SPECIFIC GRAVITY (test code = SGU) 1.015 1.001-1.035 UA BLOOD DIPSTICK (test code = LEAH) neg Wyatt/uL NEGATIVE UA PH DIPSTICK (test code = ISAAC) 5.0 5.0-8.0 UA PROTEIN DIPSTICK (test code = PROU) neg mg/dL Neg-15 UA UROBILINIOGEN DIPSTICK (test code = URO) norm mg/dL 0.0-0.2 UA NITRITE DIPSTICK (test code = JENNIFER) NEGATIVE NEGATIVE UA LEUKOCYTE ESTERASE DIPSTICK (test code = LEUU) neg uL NEGA TIVE UA MICROSCOPIC NEEDED? (test code = UAMICRO) NO, NOT INDICATED UA MICROSCOPIC NOT INDICATED UA MICROSCOPIC EXAMS ARE NOT PERFORMED UNLESS ONE OF THECHEMICAL TESTS OR VISUAL EXAMINATION IS ABNORMAL. THE MICROSCOPIC EVALUATIONS ARE PERFORMED ON ALL ABNORMALRESULTS AND/OR WHEN SPECIFICALLY ORDERED BY A PHYSICIAN. COMPREHENSIVE METABOLIC [id number] 19:02:00* Test Item Value Reference Range Interpretation Comments SODIUM (test code = NA) 128 mmol/L 136-145 L POTASSIUM (test code = K) 5.4 mmol/L 3.5-5.1 H CHLORIDE (test code = CL) 94 mmol/L 101-109 L CARBON DIOXIDE (test code = CO2) 21.1 mmol/L 21-32 N ANION GAP (test code = GAP) 18 mmol/L 10-20 N GLUCOSE (test code = GLU) 492 mg/dL 74-106 H BLOOD UREA NITROGEN (test code = BUN) 35 mg/dL 3-21 H CREATININE (test code = CREAT) 1.56 mg/dL 0.55-1.3 H BUN/CREATININE RATIO (test code = BUN/CREA) 22.4 10-20 H TOTAL PROTEIN (test code = PROT) 7.9 g/dL 6.5-8.4 N ALBUMIN (test code = ALB) 3.8 g/dL 3.4-4.8 N GLOBULIN (test code = GLOB) 4.1 G/DL 1-10 N ALBUMIN/GLOBULIN RATIO (test code = A/G) 0.93 RATIO 0.75-1.50 N CALCIUM (test code = CA) 8.6 mg/dL 8.4-10.2 N BILIRUBIN TOTAL (test code = BILT) 0.40 mg/dL 0.0-1.0 N SGOT/AST (test code = AST) 18 U/L 6-32 N SGPT/ALT (test code = ALT) 32 U/L 12-78 N N ote: Change in REFERENCE RANGE due to new reagent method. ALKALINE PHOSPHATASE TOTAL (test code = ALKP) 57 U/L 38-126 N COMPREHENSIVE METABOLIC [id number] 19:01:00* Test Item Value Reference Range Interpretation Comments SODIUM (test code = NA) 128 mmol/L 136-145 L POTASSIUM (test code = K) 5.4 mmol/L 3.5-5.1 H CHLORIDE (test code = CL) 94 mmol/L 101-109 L CARBON DIOXIDE (test code = CO2) 21.1 mmol/L 21-32 N ANION GAP (test code = GAP) 18 mmol/L 10-20 N GLUCOSE (test code = GLU) 492 mg/dL 74-106 H BLOOD UREA NITROGEN (test code = BUN) 35 mg/dL 3-21 H CREATININE (test code = CREAT) 1.56 mg/dL 0.55-1.3 H BUN/CREATININE RATIO (test code = BUN/CREA) 22.4 10-20 H TOTAL PROTEIN (test code = PROT) gram/dL 6.4-8.2 ALBUMIN (test code = ALB) g/dL 3.4-5.0 GLOBULIN (test code = GLOB) g/dL 2.7-4.2 ALBUMIN/GLOBULIN RATIO (test code = A/G) 0.75-1.50 CALCIUM (test code = CA) 8.6 mg/dL 8.4-10.2 N BILIRUBIN TOTAL (test code = BILT) mg/dL 0.2-1.2 SGOT/AST (test code = AST) IUnit/L 15-37 SGPT/ALT (test code = ALT) U/L 10-69 ALKALINE PHOSPHATASE TOTAL (test code = ALKP) IUnit/L 45-117 CBC W/AUTO [id number] 18:46:00* Test Item Value Reference Range Interpretation Comments WHITE BLOOD CELL (test code = WBC) 15.8 K/mm3 4.5-12.5 H RED BLOOD CELL (test code = RBC) 4.55 mill/mm3 4.0-5.8 N HEMOGLOBIN (test code = HGB) 13.7 gram/dL 13.0-17.5 N HEMATOCRIT (test code = HCT) 42.4 % 42.0-52.0 N MEAN CELL VOLUME (test code = MCV) 93.2 fL 80-98 N MEAN CELL HGB (test code = MCH) 30.1 picogram 27.0-33.0 N MEAN CELL HGB CONCETRATION (test code = MCHC) 32.3 gram/dL 33.0-36. 0 L RED CELL DISTRIBUTION WIDTH (test code = RDW) 12.5 % 11.6-16. 2 N RED CELL DISTRIBUTION WIDTH SD (test code = RDW-SD) 43.2 fL 37 .0-51.0 N PLATELET COUNT (test code = PLT) 167 K/mm3 150-450 N MEAN PLATELET VOLUME (test code = MPV) 9.9 fL 6.7-11.0 N NEUTROPHIL % (test code = NT%) 82.5 % 39.0-69.0 H LYMPHOCYTE % (test code = LY%) 12.9 % 25.0-55.0 L MONOCYTE % (test code = MO%) 3.8 % 0.0-10.0 N EOSINOPHIL % (test code = EO%) 0.1 % 0.0-5.0 N BASOPHIL % (test code = BA%) 0.2 % 0.0-1.0 N NEUTROPHIL # (test code = NT#) 13.01 K/mm3 1.8-7.7 H LYMPHOCYTE # (test code = LY#) 2.03 K/mm3 1.0-5.0 N MONOCYTE # (test code = MO#) 0.60 K/mm3 0-0.8 N EOSINOPHIL # (test code = EO#) 0.02 K/mm3 0.0-0.5 N BASOPHIL # (test code = BA#) 0.03 K/mm3 0.0-0.2 N MANUAL DIFF REQUIRED (test code = MDIFF) NO - XR CHEST 2 [id number] 18:45:00 Name: HDEZZAC LERNERNE [facility] : 1950 Age/S:69 /M [address] [facility] Unit#:[id number] Loc: [place] [address] Phys: Samy Oreilly MD Dis Date: PHONE #: [phone] Status: REG ER FAX #: [phone] Exam Date: 02/19/2020 Reason: cough EXAMS: CPT CODE: [id number] XR CHEST 2 V 63340 EXAM: Chest x-ray, 2 views; INFORMATION: Cough; FINDINGS: There are mild basilar atelectatic changes bilaterally. No infiltrates, no edema; no effusions, no pneumothorax. Unremarkable cardiomediastinal silhouette. IMPRESSION: Except for mild basilar atelectatic changes, no evidence of active cardiopulmonary disease. Location code: GW at 1845 Reported and signed by: Joaquin Avila M.D. CC: Samy Oreilly MD; Sil Santa Technologist: Mary Kay Knowles Trnscrpt Data: 02/19/2020 (1844) t.SDR.GRW Orig Print D/T: S: 02/19/2020 (1847) PAGE 1 Signed Report - CT ABD PELVIS [id number] 11:01:00 Name: ZAC HDEZNE [facility] : 1950 Age/S: 68 / M [address] [facility] Unit #: [id number] Loc: [place] [address] Phys: Justin Grissom MD Acct: [id number] Dis Date: Status: REG ER PHONE #: [phone] Exam Date: 05/21/2019 1045 FAX #: [phone] Reason: upper abd pain EXAMS: CPT CODE: [id number] CT ABD PELVIS W/CONT 99639 REASON FOR EXAM: upper abd pain EXAM ORDER DATE: 05/21/2019 8:39 AM Ordering Serge: Justin Grissom MD PROCEDURE: - CT ABD PELVIS W/CONT COMPARISON: FINDINGS: CT images of the abdomen and pelvis were obtained with IV and without oral contrast at 5mm. Dose modulation, iterative reconstruction, and/or weight based adjustment of the MA/KV was utilized to reduce the radiation dose to as low as reasonably achievable. Intravenous contrast: 100cc of Omnipaque 370. The liver and pancreas are grossly within normal limits. The spleen is enlarged measuring 15 cm The gallbladder is unremarkable by CT Bilateral renal cysts with the largest cyst in the midpole of the left kidney measuring 4 cm. The urinary bladder is unremarkable. The colon, small bowel, and stomach are within normal limits without evidence of obstruction. The appendix is not seen No evidence of free air or free fluid. IMPRESSION: No acute findings in the abdomen at 1101 Reported and signed by: Mayco Butler M.D. CC: Justin Grissom MD; Sil Jean Technologist:Cyndi Rascon RT(R)(CT) CTDI: DLP: Trnscb Date/Time: 05/21/2019 (1101) tVIJAY Orig Print D/T: S: 05/21/2019 (2902) PAGE 1 Signed Report CBC W/O [id number] 10:07:00 * Test Item Value Reference Range Interpretation Comments WHITE BLOOD CELL (test code = WBC) 4.9 K/mm3 4.5-12.5 N RED BLOOD CELL (test code = RBC) 4.55 mill/mm3 4.0-5.8 N HEMOGLOBIN (test code = HGB) 13.8 gram/dL 13.0-17.5 N HEMATOCRIT (test code = HCT) 41.5 % 42.0-52.0 L MEAN CELL VOLUME (test code = MCV) 91.2 fL 80-98 N MEAN CELL HGB (test code = MCH) 30.3 picogram 27.0-33.0 N MEAN CELL HGB CONCETRATION (test code = MCHC) 33.3 gram/dL 33.0-36. 0 N RED CELL DISTRIBUTION WIDTH (test code = RDW) 13.1 % 11.6-16. 2 N PLATELET COUNT (test code = PLT) 115 K/mm3 150-450 L MEAN PLATELET VOLUME (test code = MPV) 10.5 fL 6.7-11.0 N URINALYSIS [id number] 10:00:00* Test Item Value Reference Range Interpretation Comments UA COLOR (test code = COLU) Light-Yellow YELLOW UA APPEARANCE (test code = APPU) CLEAR CLEAR UA GLUCOSE DIPSTICK (test code = DGLUU) 200 (2+) mg/dL NEGATIVE A UA BILIRUBIN DIPSTICK (test code = BILU) NEGATIVE mg/dL NEGATIVE UA KETONE DIPSTICK (test code = KETU) NEGATIVE mg/dL NEGATIVE UA SPECIFIC GRAVITY (test code = SGU) 1.011 1.001-1.035 UA BLOOD DIPSTICK (test code = LEHA) Negative mg/dL NEGATIVE UA PH DIPSTICK (test code = ISAAC) 5.0 5.0-8.0 UA PROTEIN DIPSTICK (test code = PROU) NEGATIVE mg/dL NEGATIVE UA UROBILINIOGEN DIPSTICK (test code = URO) Normal mg/dL NEGATIVE UA NITRITE DIPSTICK (test code = JENNIFER) NEGATIVE NEGATIVE UA LEUKOCYTE ESTERASE W REFLEX (test code = LEUUR) NEGATIVE Bj/uL NEGATIVE UA WBC (test code = WBCU) 0-5 per HPF 0-5 UA RBC (test code = RBCU) 0-2 #/HPF 0-5 UA EPITHELIAL CELLS (test code = EPIU) FEW per HPF FEW UA BACTERIA (test code = BACU) NONE SEEN #/HPF NONE UA MUCUS (test code = MUCU) FEW #/LPF FEW Urine Source? Clean CatchURINALYSIS [id number] 09:57:00* Test Item Value Reference Range Interpretation Comments UA COLOR (test code = COLU) Light-Yellow YELLOW UA APPEARANCE (test code = APPU) CLEAR CLEAR UA GLUCOSE DIPSTICK (test code = DGLUU) 200 (2+) mg/dL NEGATIVE A UA BILIRUBIN DIPSTICK (test code = BILU) NEGATIVE mg/dL NEGATIVE UA KETONE DIPSTICK (test code = KETU) NEGATIVE mg/dL NEGATIVE UA SPECIFIC GRAVITY (test code = SGU) 1.011 1.001-1.035 UA BLOOD DIPSTICK (test code = LEAH) Negative mg/dL NEGATIVE UA PH DIPSTICK (test code = ISAAC) 5.0 5.0-8.0 UA PROTEIN DIPSTICK (test code = PROU) NEGATIVE mg/dL NEGATIVE UA UROBILINIOGEN DIPSTICK (test code = URO) Normal mg/dL NEGATIVE UA NITRITE DIPSTICK (test code = JENNIFER) NEGATIVE NEGATIVE UA LEUKOCYTE ESTERASE W REFLEX (test code = LEUUR) NEGATIVE Bj/uL NEGATIVE UA WBC (test code = WBCU) per HPF 0-5 UA RBC (test code = RBCU) per HPF 0-5 UA EPITHELIAL CELLS (test code = EPIU) per HPF Few UA BACTERIA (test code = BACU) per HPF NONE Urine Source? Clean CatchBASIC METABOLIC [id number] 09:35:00* Test Item Value Reference Range Interpretation Comments SODIUM (test code = NA) 136 mmol/L 136-145 N SPEC IMEN 3+ HEMOLYSIS POTASSIUM (test code = K) 4.2 mmol/L 3.5-5.1 N CHLORIDE (test code = CL) 106.0 mmol/L 98-107 N CARBON DIOXIDE (test code = CO2) 23.0 mmol/L 21-32 N ANION GAP (test code = GAP) 11.2 10-20 N GLUCOSE (test code = GLU) 185 mg/dL 74-106 H BLOOD UREA NITROGEN (test code = BUN) 22 mg/dL 7-18 H GLOMERULAR FILTRATION RATE (test code = GFR) > 60 mL/min >=60 Estimated GFR by using Modified MDRD formula.Chronic kidney disease is defined as either kidney damageor GFR <60 mL/min/1.73 m2 for >3 months. CREATININE (test code = CREAT) 1.10 mg/dL 0.7-1.3 N BUN/CREATININE RATIO (test code = BUN/CREA) 20.2 10-20 H CALCIUM (test code = CA) 8.8 mg/dL 8.5-10.1 N HEPATIC FUNCTION [id number] 09:35:00* Test Item Value Reference Range Interpretation Comments TOTAL PROTEIN (test code = PROT) 7.9 gram/dL 6.4-8.2 N ALBUMIN (test code = ALB) 3.8 g/dL 3.4-5.0 N GLOBULIN (test code = GLOB) 4.1 gram/dL 2.7-4.2 N ALBUMIN/GLOBULIN RATIO (test code = A/G) 0.9 0.75-1.50 N BILIRUBIN TOTAL (test code = BILT) 0.40 mg/dL 0.0-1.0 N BILIRUBIN DIRECT (test code = BILD) 0.05 mg/dL 0.0-0.20 N SGOT/AST (test code = AST) 68 IUnit/L 15-37 H SGPT/ALT (test code = ALT) 51 IUnit/L 12-78 N ALKALINE PHOSPHATASE TOTAL (test code = ALKP) 66 IUnit/L 45-117 N Note change in reference range due to change in reagent. [id number] 09:35:00* Test Item Value Reference Range Interpretation Comments LIPASE (test code = LIP) 162 U/L 73.0-393.0 N [id number] 09:35:00* Test Item Value Reference Range Interpretation Comments TROPONIN-I (test code = TROPI) <0.015 ng/mL 0-0.045 N BASIC METABOLIC [id number] 09:31:00* Test Item Value Reference Range Interpretation Comments SODIUM (test code = NA) 136 mmol/L 136-145 N SPEC IMEN 3+ HEMOLYSIS POTASSIUM (test code = K) 4.2 mmol/L 3.5-5.1 N CHLORIDE (test code = CL) 106.0 mmol/L 98-107 N CARBON DIOXIDE (test code = CO2) mmol/L 21-32 ANION GAP (test code = GAP) 10-20 GLUCOSE (test code = GLU) mg/dL 74-106 BLOOD UREA NITROGEN (test code = BUN) mg/dL 7-18 GLOMERULAR FILTRATION RATE (test code = GFR) mL/min >=60 CREATININE (test code = CREAT) mg/dL 0.7-1.3 BUN/CREATININE RATIO (test code = BUN/CREA) 10-20 CALCIUM (test code = CA) mg/dL 8.5-10.1 HEPATIC FUNCTION [id number] 09:31:00* Test Item Value Reference Range Interpretation Comments TOTAL PROTEIN (test code = PROT) gram/dL 6.4-8.2 ALBUMIN (test code = ALB) g/dL 3.4-5.0 GLOBULIN (test code = GLOB) gram/dL 2.7-4.2 ALBUMIN/GLOBULIN RATIO (test code = A/G) 0.75-1.50 BILIRUBIN TOTAL (test code = BILT) mg/dL 0.0-1.0 BILIRUBIN DIRECT (test code = BILD) mg/dL 0.0-0.20 SGOT/AST (test code = AST) IUnit/L 15-37 SGPT/ALT (test code = ALT) IUnit/L 12-78 ALKALINE PHOSPHATASE TOTAL (test code = ALKP) IUnit/L 45-117 [id number] 09:31:00* Test Item Value Reference Range Interpretation Comments LIPASE (test code = LIP) U/L 73.0-393.0 [id number] 09:31:00* Test Item Value Reference Range Interpretation Comments TROPONIN-I (test code = TROPI) ng/mL 0-0.045 CT CHEST WO [place] [address] Patient Name: ZAC HDEZ MR #: [id number] : 1950 Age/Sex: 66/M Req #: [id number] Adm Physician: Ordered by: KEVIN SARGENT MD Report #: [id number] Location: [facility] Room/Bed: Procedure: [id number] CT/CT CHEST WO Exam Date : 11/19/17 Exam Time: 0820 REPORT STATUS: Sheryl d PROCEDURE: CT CHEST WITHOUT CONTRAST COMPARISON: Patients Medical Charito ter, CT, CT CHEST WO, 10/27/2017, 1:40. INDICATIONS: Pneumonia TECHNIQUE: Routine protocol Volumetric CT abdomen and pelvis. No intravenous or enteric contrast. Multiplanar reformatted images. DLP: 533.88 mGy*cm FINDINGS: Lungs: Interval decrease in right upper lobe groundglass opacity, with int erval development of peripheral, nodular left upper lobe groundglass opacity measuring about 1.6 x 1.8 cm (image 41, series 3). Interval increase and righ t lower lobe groundglass opacity (image 83, series 3) Focal consolidative air space opacity within the peripheral right middle lobe (image 58, series 3) is unchanged. Airways: Mild diffuse bronchial wall thickening without bronch iectasis. Airways are patent. Pleura: Trace right pleural effusion versus f ocal pleural thickening (image 75, series 2) the increased from October 27 18 Lymph nodes: Normal Pulmonary arteries: Main pulmonary artery diamete r 3.5 cm. Mild prominence of the intraparenchymal pulmonary arteries. Thora cic aorta and great vessels: Normal caliber. Mild prominence of the azygos ve in. Heart and pericardium: Normal size. No pericardial effusion. Mild left anterior descending, circumflex and right coronary artery calcification. Subdiaphragmatic organs: Hepatomegaly. Spleen length 13 cm. Otherwise, norm al Skeleton: Intact. Soft tissues: Normal CONCLUSION: Relative to October 27, 2017 there is interval development of new foci of groundglass opa city primarily within the peripheral left upper and right lower lobes, while right upper lobe groundglass opacity has decreased. Consolidative airspace op acity within the right middle lobe is stable. Overall, the findings continue to suggest organizing pneumonia, eosinophilic pneumonia or hypersensitivity p neumonitis. Dictated by: Dee Okeefe M.D. on 11/19/2017 at 8:56 Electronically approved by: Dee Okeefe M.D. on 11/19/2017 at 8 :56 Dictated By: DEE OKEEFE MD 5 Transcribed By: KEY on 11/19/17 08 CO PY TO: KEVIN SARGENT MD CT CHEST WO [place] [address] Patient Name: ZAC HDEZ MR #: [id number] : 1950 Age/Sex: 66/M Req #: [id number] Adm Physician: HIRAM ANDREWS MD Ordered by: FREDDY GONZALEZ MD Report #: [id number] Location: [facility] Room/Bed: [place] [address] Procedure: [id number] T/CT CHEST WO Exam Date: 10/27/17 Exam Time: 0140 REPORT STATUS: Signed EXAM: CT CHEST WO DATE: 10/27/2017 1:[address] amp on exam: O 0142 hours INDICATION: Shortness of breath, cough, congestion COMPARISON: AP view of the chest October 26, 2017 TECHNIQUE: Multidetector CT scanning of the chest was performed. Coronal and sagittal multiplanar refor mations were obtained. Routine protocol performed. IV Contrast: None CTDIvol has been reviewed. It is below the limits set by the Radiation Protocol Commi ttee ([facility]). FINDINGS: LUNGS AND AIRWAYS: The trachea and major bronchi ar e unremarkable. Peripheral reticulation and groundglass opacities in the upper lungs, predominantly in the right upper lung and to a lesser extent the right lower lobe. Small consolidation in the right middle lobe (accounts for nodular appearance on prior chest x-ray). PLEURA: No effusions or pneumothorax. HEART, MEDIASTINUM, VESSELS: Normal appearance. No mediastinal mass or l ymphadenopathy. UPPER ABDOMEN: Normal MUSCULOSKELETAL: No acute findin gs. IMPRESSION: Right upper lobe predominant peripheral reticulation and groundglass opacities. Differential includes atypical infection, eosinophilic pneumonia or organizing pneumonia. Signed by: Dr. Horace Hyatt M.D. on 10/27/2017 2:22 AM Dictated By: HORACE HYATT MD 1 Transcribed By: FREDY on 221 COPY TO: FREDDY GONZALEZ MD CHEST SINGLE (NOT PORTABLE) [address] [address] Patient Name: ZAC HDEZ MR #: [id number] : 1950 Age/Sex: 66/M Req #: [id number] Adm Physician: Ordered by: SHAILESH WEBER SUBSTATION SUPERINTENDENT Report #: [id number] Location: ER Room/ Bed: Procedure: [id number] DX/CHEST SINGLE (NOT PORTAB LE) Exam Date: 10/26/17 Exam Time: 2044 REPORT STATUS: Signed EXAM: CHEST SINGLE (NOT PORTABLE), AP 1 view DATE: 10/26/2017 8:18 PM Time stamp on exam: 2051 hours INDICATION: Cough, congestion MAHNAZ RISON: None available FINDINGS: LINES/TUBES: None LUNGS: Ill-defined nodular density measuring approximately 1.5 cm projected over the right lower lobe. Right lateral lung peripheral reticulation/scarring. Right lower lobe atelectasis. PLEURA: No effusions or pneumothorax. Mild right lateral pleur al thickening. HEART AND MEDIASTINUM: The heart is within normal size limit s. Nonspecific prominence of the bilateral rohit. BONES AND SOFT TISSUES: No acute findings. IMPRESSION: Nodular density measuring approximately 1 .5 cm in the right lung base with adjacent reticulation and pleural thickening . Depending on patient's history, consider CT of the chest with IV contrast to evaluate for lung mass. Signed by: Dr. Horace Hyatt M.D. on 10/26/2017 10:35 PM Dictated By: HORACE HYATT MD 34 Transcribed By: FREDY on 10/26/172234 COPY TO: SHAILESH WEBER SUBSTATION SUPERINTENDENT CHEST 2 VIEWS [place] [address] Patient Name: ZAC HDEZ MR #: [id number] : 1950 Age/Sex: 66/M Req #: [id number] [facility] Physician: Ordered by: LOUIS DENNY MD Report #: [id number] Location: OR Room/Bed: Procedure: [id number] DX/CHEST 2 VIEWS Exam Eros e: Exam Time: REPORT STATUS: Signed PROCED URE: X-RAY CHEST, TWO VIEWS COMPARISON: None. INDICATIONS: PRE-OP. DENIES CH EST COMPLAINTS FINDINGS: The lungs are well-inflated. No focal air space consolidation, pleural effusion, or pneumothorax. Cardiomediastinal con tour and pulmonary vasculature are within normal limits. Rightward trac heal deviation at the thoracic inlet. No acute osseous abnormality. CONCLUSION: No acute cardiopulmonary abnormality. Mild rightward brittany ation of the trachea at the thoracic inlet may be related to hypertrophy of t he left lobe of the thyroid. Further evaluation may be obtained with ultrasou nd if clinically warranted. Dictated by: Sil Reinoso M.D. on 07/27/20 at 14:23 Electronically approved by: Sil Reinoso M.D. on 07/27/2017 a t 14:23 Dictated By: SIL REINOSO MD 1423 Transcribed By: KEY on 07/27/17 1425 COPY TO: LOUIS DENNY MD
--- NOTE | 2020-08-31 02:30 | Diagnostic Imaging Report ---
EXAM: CT Abdomen and Pelvis WITH contrast INDICATION: Abdominal pain COMPARISON: Chest CT 19 11/19/2017. TECHNIQUE: Abdomen and pelvis were scanned utilizing a multidetector helical scanner from the lung base to the pubic symphysis after administration of IV contrast. Coronal and sagittal reformations were obtained. Routine protocol was performed. Scan was performed when during portal venous phase. IV CONTRAST: 100 mL of Isovue 370 ORAL CONTRAST: None COMPLICATIONS: None RADIATION DOSE: Total DLP: 877 mGy*cm Estimated effective dose: (DLP x 0.015 x size factor) mSv CTDIvol has been reviewed. It is below the limits set by the Radiation Protocol Committee (RPC). Dose modulation, iterative reconstruction, and/or weight based adjustment of the mA/kV was utilized to reduce the radiation dose to as low as reasonably achievable. FINDINGS: LINES and TUBES: None. LOWER THORAX: Bibasilar scarring/atelectasis. Triple vessel coronary artery calcifications. HEPATOBILIARY: No focal hepatic lesions. No biliary ductal dilation. GALLBLADDER: No radio-opaque stones or sludge. No wall thickening. SPLEEN: No splenomegaly. PANCREAS: No focal masses or ductal dilatation. ADRENALS: No adrenal nodules KIDNEYS/URETERS: Kidneys enhance symmetrically. No hydronephrosis. No cystic or solid mass lesions. No stones. GI TRACT: Large colorectal stool volume. Appendix is normal. PELVIC ORGANS/BLADDER: Unremarkable. LYMPH NODES: No lymphadenopathy. VESSELS: Arterial calcifications. Mild focal infrarenal abdominal aortic ectasia, 2.6 cm in diameter. PERITONEUM / RETROPERITONEUM: No free air or fluid. BONES: Degenerative changes. Healed left lower rib fractures. SOFT TISSUES: Left spermatic cord clip. IMPRESSION: 1. Large rectal stool volume concerning for fecal impaction. Large colonic stool volume as seen with constipation. 2. Triple vessel coronary artery calcific atherosclerosis. 3. Moderate urinary bladder distention, correlate for urinary retention. Signed by: Trevin Alston DO on 08/31/2020 2:27 AM
[2020-08-31] MEDS ORDERED: GOLYTELY SOLU4000 ML PO (02:40)
[2020-08-31] MEDS ORDERED: LACTULOSE SYRUP 20 GM/30 ML UDC PO ONE (02:45)
[2020-08-31 02:47] VITALS: BP 144/72
== END 2020-08-31 02:52 | disposition home or self-care (01) ==
LOC: ER 00:04
DX: R10.30 Lower abdominal pain, unspecified (principal); K59.00 Constipation, unspecified; E11.65 Type 2 diabetes mellitus with hyperglycemia; R42 Dizziness and giddiness; I10 Essential (primary) hypertension; E78.5 Hyperlipidemia, unspecified; J44.9 Chronic obstructive pulmonary disease, unspecified; M10.9 Gout, unspecified; R94.31 Abnormal electrocardiogram [ECG] [EKG]
CPT/HCPCS: 36415; 74177; 80053; 82550; 82553; 83690; 84484; 85025; 93005; 99284; J7030; Q9967

== ENCOUNTER → 2020-09-24 | Day surgery (SDC) | payer MEDICARE ==
[2020-09-20 14:20] LABS: BASOPHILS # (AUTO) 0.1 (0.0-0.1); BASOPHILS % 0.6 % (0.0-1.0); EOSINOPHILS # (AUTO) 0.3 (0.0-0.4); EOSINOPHILS % 3.1 % (0.0-6.0); HEMATOCRIT 37.3 % (38.2-49.6); HEMOGLOBIN 12.4 g/dL (14.0-18.0); LYMPHOCYTES # (AUTO) 2.7 (1.0-3.2); LYMPHOCYTES % 30.4 % (18.0-39.1); MEAN CORPUSCULAR HEMOGLOBIN 30.5 pg (28-32); MEAN CORPUSCULAR HGB CONC 33.2 g/dL (31-35); MEAN CORPUSCULAR VOLUME 91.6 fL (81-99); MONOCYTES # (AUTO) 0.7 (0.2-0.8); MONOCYTES % 7.9 % (4.4-11.3); NEUTROPHILS # (AUTO) 5.1 (2.1-6.9); NEUTROPHILS % 57.4 % (38.7-80.0); PLATELET COUNT 164 x10e3/uL (140-360); RED BLOOD COUNT 4.07 x10e6/uL (4.3-5.7); RED CELL DISTRIBUTION WIDTH 13.5 % (11.7-14.4)
[~2020-09-24] MED LIST changes: +AVODART0.5 MG PO; +DILTIAZEM 24HR180 M1 PO; +FENTANYL CITRATE/PF 100MCG/2 ML INJ ONE; +GLUCAGON FOR INJ 1 MG VIAL ONE; +GOLYTELY SOLU4000 ML PO; +HYOSCYAMINE 0.125 MG TAB ONE; +LIDOCAINE HCL 2% LOCAL INJ 5 ML SDV VIAL INJ ONE; +METOPROLOL SUCC50 MG PO; +MIDAZOLAM HCL 2 MG/2 ML VIAL ONE; +PIOGLITAZONE HC45 MG PO; +PROPOFOL IV EMULSION 10 MG/ML 20 ML VIAL ONE; +TROSPIUM CHLORI20 MG PO
[2020-09-24 14:10] VITALS: BP 116/78
== END | disposition home or self-care (01) ==
LOC: OR 09:30
PROVIDERS: ATTEND Internal Medicine Gastroenterology
DX: K59.09 Other constipation (principal); D12.3 Benign neoplasm of transverse colon; K57.30 Diverticulosis of large intestine without perforation or abscess without bleeding; K64.8 Other hemorrhoids; I10 Essential (primary) hypertension; E11.9 Type 2 diabetes mellitus without complications; J44.9 Chronic obstructive pulmonary disease, unspecified; E66.01 Morbid (severe) obesity due to excess calories; I45.10 Unspecified right bundle-branch block; Z01.812 Encounter for preprocedural laboratory examination; Z20.828 Contact with and (suspected) exposure to other viral communicable diseases; Z79.84 Long term (current) use of oral hypoglycemic drugs; Z79.82 Long term (current) use of aspirin; Z68.30 Body mass index [BMI] 30.0-30.9, adult
CPT/HCPCS: 36415 ×2; 45384; 82948; 85025; 88305; J1610; J2001; J2250; J2704; J3010; U0002; 45378

== ENCOUNTER 2022-04-24 09:50 | Emergency (ER) | payer MEDICARE ==
[~2022-04-24] VITALS: Ht 182.9 cm; Wt 123.8 kg
[~2022-04-24 09:50] MED LIST changes: -FENTANYL CITRATE/PF 100MCG/2 ML INJ ONE; -GLUCAGON FOR INJ 1 MG VIAL ONE; -HYOSCYAMINE 0.125 MG TAB ONE; -LIDOCAINE HCL 2% LOCAL INJ 5 ML SDV VIAL INJ ONE; -MIDAZOLAM HCL 2 MG/2 ML VIAL ONE; -PROPOFOL IV EMULSION 10 MG/ML 20 ML VIAL ONE
[2022-04-24] MEDS ORDERED: ACETAMINOPHEN500 MG PO (11:54)
[2022-04-24] MEDS ORDERED: PAXLOVID 150-11 EACH PO (11:54)
== END 2022-04-24 12:20 | disposition home or self-care (01) ==
LOC: FSED 10:05
DX: R05.9 Cough, unspecified (principal); U07.1 COVID-19; R09.89 Other specified symptoms and signs involving the circulatory and respiratory systems; E11.65 Type 2 diabetes mellitus with hyperglycemia
CPT/HCPCS: 0223U; 36415; 71046; 80048; 85025; 99283

== ENCOUNTER 2022-09-13 11:10 | Inpatient (IN) | payer MEDICARE ==
[~2022-09-13] VITALS: Ht 182.9 cm; Wt 101.3 kg
[~2022-09-13 11:10] MED LIST changes: +ACETAMINOPHEN500 MG PO; +PAXLOVID 150-11 EACH PO
[2022-09-13] MEDS ORDERED: IOPAMIDOL 370 MG/ML 100 ML INFUS..BTL INJ ONE (11:44)
[2022-09-13] MEDS ORDERED: ONDANSETRON HCL INJ 2MG/ML 2ML 2 MG/ML VIAL IV PRN (11:45)
[2022-09-13] MEDS ORDERED: Morphine 4mg INJECTION 4 MG/ML INJ IV PRN (11:45)
[2022-09-13] MEDS ORDERED: ENOXAPARIN SODIUM INJ 100 MG/ML SYR SC ONE ×2 (12:29→13:10)
== END 2022-09-13 15:33 | disposition short-term general hospital (02) | DRG 176 ==
LOC: FSED 11:15 → ERHOLD 11:34
PROVIDERS: ADMIT Family Medicine; ATTEND Family Medicine
DX: I26.92 Saddle embolus of pulmonary artery without acute cor pulmonale (principal); I10 Essential (primary) hypertension; J44.9 Chronic obstructive pulmonary disease, unspecified; R09.02 Hypoxemia; I51.89 Other ill-defined heart diseases; E78.5 Hyperlipidemia, unspecified; K21.9 Gastro-esophageal reflux disease without esophagitis; M10.9 Gout, unspecified
CPT/HCPCS: 0223U; 36415; 71260; 80053; 82553; 84484; 85025; 87400; 93005; 99284; J1650; Q9967

== ENCOUNTER 2022-09-20 14:48 | Observation (INO) | payer MEDICARE ==
[~2022-09-20] VITALS: Ht 185.4 cm; Wt 95.3 kg
[2022-09-20] MEDS ORDERED: CEFTRIAXONE 2 GM in SODIUM CHLORIDE 0.9% 100 ML IV ONE (15:30)
[2022-09-20] MEDS ORDERED: ACETAMINOPHEN 325 MG TAB PO ONE (15:30)
[2022-09-20] MEDS: SODIUM CHLORIDE 0.9% 1000ML 1,000 ML IV SCH ×2 (15:40→18:57)
[2022-09-20] MEDS ORDERED: ACETAMINOPHEN 325 MG TAB ONE (15:42)
[2022-09-20] MEDS ORDERED: CEFTRIAXONE 1 GM VIAL ONE (15:42)
[2022-09-20] MEDS ORDERED: CLONIDINE HCL 0.1 MG TAB PO PRN (16:15)
[2022-09-20] MEDS ORDERED: ASPIRIN 81 MG CHEW TAB PO ONE (16:15)
[2022-09-20] MEDS ORDERED: DIPHENHYDRAMINE HCL INJ 50 MG/ML VIAL IV PRN (16:15)
[2022-09-20] MEDS ORDERED: DEXTROSE 50% SYRINGE 50 ML IV PRN (16:15)
[2022-09-20] MEDS ORDERED: ZOLPIDEM TARTRATE 5 MG TAB PO PRN (16:15)
[2022-09-20] MEDS ORDERED: SODIUM CHLORIDE 0.45% 1,000 ML IV SCH (16:15)
[2022-09-20] MEDS ORDERED: ENALAPRILAT IV INJ 1.25 MG/ML VIAL IV PRN (16:15)
[2022-09-20] MEDS: INSULIN REGULAR, HUMAN 100 UNIT/1 ML SQ SCH ×2 (16:30→21:55)
[2022-09-20] MEDS ORDERED: INSULIN REGULAR, HUMAN 100 UNIT/1 ML IV ONE ×2 (16:45→17:15)
[2022-09-20] MEDS: OSELTAMIVIR PHOSPHATE 75 MG CAP PO SCH (17:04)
[2022-09-20] MEDS ORDERED: OSELTAMIVIR PHOSPHATE 75 MG CAP PO ONE (17:26)
[2022-09-20] MEDS ORDERED: INSULIN REGULAR, HUMAN 100 UNIT/1 ML ONE (17:27)
[2022-09-20] MEDS: FAMOTIDINE 20 MG TAB PO SCH (18:57)
[2022-09-20] MEDS: APIXABAN 5 MG TABLET PO SCH (18:57)
[2022-09-20 20:28] VITALS: BP 136/84
[2022-09-20] MEDS: ALBUTEROL/IPRATROPIUM 3 ML NEB NEB SCH (20:30)
[2022-09-20 21:00] VITALS: BP 136/84
[2022-09-21] VITALS (8 sets, daily range): BP systolic 130–178; BP diastolic 71–89
[2022-09-21] MEDS: ACETAMINOPHEN 325 MG TAB PO PRN ×2 (05:41→20:37)
[2022-09-21] MEDS: ALBUTEROL/IPRATROPIUM 3 ML NEB NEB SCH ×3 (06:00→19:20)
[2022-09-21 06:02] LABS: CREATINE KINASE MB 0.9 ng/mL (0-5.0)
[2022-09-21 08:13] LABS: BASOPHILS # (AUTO) 0.1 (0.0-0.1); BASOPHILS % 0.6 % (0.0-1.0); EOSINOPHILS # (AUTO) 0.1 (0.0-0.4); EOSINOPHILS % 1.3 % (0.0-6.0); HEMATOCRIT 37.3 % (38.2-49.6); HEMOGLOBIN 11.6 g/dL (14.0-18.0); MEAN CORPUSCULAR HEMOGLOBIN 30.1 pg (28-32); MEAN CORPUSCULAR HGB CONC 31.1 g/dL (31-35); MEAN CORPUSCULAR VOLUME 96.9 fL (81-99); MONOCYTES # (AUTO) 0.7 (0.2-0.8); MONOCYTES % 8.8 % (4.4-11.3); NEUTROPHILS # (AUTO) 5.4 (2.1-6.9); NEUTROPHILS % 64.9 % (38.7-80.0); PLATELET COUNT 170 x10e3/uL (140-360); RED BLOOD COUNT 3.85 x10e6/uL (4.3-5.7); RED CELL DISTRIBUTION WIDTH 12.8 % (11.7-14.4)
[2022-09-21 08:24] LABS: POTASSIUM 3.9 mmol/L (3.5-5.1)
[2022-09-21 08:39] LABS: ANION GAP 16.9 mmol/L (8-16); CALCIUM 8.6 mg/dL (8.4-10.2)
[2022-09-21] MEDS: INSULIN REGULAR, HUMAN 100 UNIT/1 ML SQ SCH ×4 (08:45→20:48)
[2022-09-21 08:56] LABS: CREATININE, SERUM 0.99 mg/dL (0.72-1.25)
[2022-09-21] MEDS: OSELTAMIVIR PHOSPHATE 75 MG CAP PO SCH ×2 (10:06→17:00)
[2022-09-21] MEDS: APIXABAN 5 MG TABLET PO SCH ×2 (10:06→17:00)
[2022-09-21] MEDS: FAMOTIDINE 20 MG TAB PO SCH ×2 (10:06→17:00)
[2022-09-21] MEDS ORDERED: ACETAMINOPHEN 325 MG TAB PO PRN (11:15)
[2022-09-21 15:12] LABS: CREATINE KINASE MB 1.1 ng/mL (0-5.0)
[2022-09-21] MEDS: SODIUM CHLORIDE 0.9% 1000ML 1,000 ML IV SCH ×2 (16:15→21:30)
[2022-09-22 00:45] VITALS: BP 145/77
[2022-09-22 04:00] VITALS: BP 142/71
[2022-09-22] MEDS: ALBUTEROL/IPRATROPIUM 3 ML NEB NEB SCH ×2 (06:55→12:36)
[2022-09-22] MEDS: SODIUM CHLORIDE 0.9% 1000ML 1,000 ML IV SCH (07:30)
[2022-09-22 08:42] VITALS: BP 147/77
[2022-09-22 09:00] VITALS: BP 147/77
[2022-09-22] MEDS ORDERED: ALLOPURINOL 300 MG TAB PO SCH (09:00)
[2022-09-22] MEDS ORDERED: DUTASTERIDE 0.5 MG CAP PO SCH (09:00)
[2022-09-22] MEDS ORDERED: PANTOPRAZOLE SOD 40 MG TABEC PO SCH (09:00)
[2022-09-22] MEDS: APIXABAN 5 MG TABLET PO SCH (09:04)
[2022-09-22] MEDS: OSELTAMIVIR PHOSPHATE 75 MG CAP PO SCH (09:04)
[2022-09-22] MEDS: FAMOTIDINE 20 MG TAB PO SCH (09:04)
[2022-09-22] MEDS: INSULIN REGULAR, HUMAN 100 UNIT/1 ML SQ SCH (09:10)
[2022-09-22] MEDS ORDERED: ELIQUIS5 MG PO (10:33)
[2022-09-22] MEDS ORDERED: TAMIFLU75 MG PO (10:33)
[2022-09-22] MEDS ORDERED: ZITHROMAX500 MG PO (10:37)
[2022-09-22] MEDS ORDERED: CEPHALEXIN500 MG PO (10:37)
[2022-09-22 12:24] VITALS: BP 158/67
[2022-09-22] MEDS ORDERED: AZITHROMYCIN 250 MG TAB PO SCH (18:00)
[2022-09-22] MEDS ORDERED: PRAMIPEXOLE DIHYDROCHLORIDE 0.25 MG TAB PO SCH (21:00)
== END 2022-09-22 12:37 | disposition home or self-care (01) ==
LOC: FSED 15:14 → ERHOLD 16:21 → MED/SURG2 18:23
PROVIDERS: ADMIT Internal Medicine; ATTEND Internal Medicine
DX: J10.01 Influenza due to other identified influenza virus with the same other identified influenza virus pneumonia (principal); J96.21 Acute and chronic respiratory failure with hypoxia; E11.65 Type 2 diabetes mellitus with hyperglycemia; J44.9 Chronic obstructive pulmonary disease, unspecified; I10 Essential (primary) hypertension; K21.9 Gastro-esophageal reflux disease without esophagitis; E78.5 Hyperlipidemia, unspecified; Z90.49 Acquired absence of other specified parts of digestive tract; Z86.718 Personal history of other venous thrombosis and embolism; T38.3X6A Underdosing of insulin and oral hypoglycemic [antidiabetic] drugs, initial encounter; Z91.128 Patient's intentional underdosing of medication regimen for other reason; Z86.711 Personal history of pulmonary embolism; Z20.822 Contact with and (suspected) exposure to COVID-19
CPT/HCPCS: 36415 ×3; 71046; 80048; 80053; 81003; 82550; 82553 ×2; 82948 ×3; 83605 ×2; 84484 ×2; 85025 ×2; 87040; 87400 ×2; 94640 ×3; 94799 ×3; 96376; 99283; G0378 ×3; J0456 ×2; J0696 ×2; J1817; J7030 ×2; J7050 ×3; S0164; U0002

== ENCOUNTER 2024-11-10 21:13 | Inpatient (IN) | payer MEDICARE ==
[~2024-11-10] VITALS: Ht 182.9 cm; Wt 83.5 kg
[~2024-11-10 21:13] MED LIST changes: +CEPHALEXIN500 MG PO; +ELIQUIS5 MG PO; +TAMIFLU75 MG PO; +ZITHROMAX500 MG PO
[2024-11-10 21:22] VITALS: PULSE 92; RESP 19; TEMP 99.8
[2024-11-10 22:00] LABS: CORONAVIRUS COVID-19 AG NEGATIVE (NEGATIVE); INFLUENZA A AG NEGATIVE (NEGATIVE); INFLUENZA B AG NEGATIVE (NEGATIVE)
[2024-11-10 22:05] LABS: BASOPHILS % 0.4 % (0.0-1.0); EOSINOPHILS # (AUTO) 0.1 (0.0-0.4); EOSINOPHILS % 2.2 % (0.0-6.0); HEMATOCRIT 39.8 % (38.2-49.6); HEMOGLOBIN 12.6 g/dL (14.0-18.0); LYMPHOCYTES # (AUTO) 0.8 (1.0-3.2); LYMPHOCYTES % 14.4 % (18.0-39.1); MEAN CORPUSCULAR HEMOGLOBIN 31.4 pg (28-32); MEAN CORPUSCULAR HGB CONC 31.7 g/dL (31-35); MEAN CORPUSCULAR VOLUME 99.3 fL (81-99); MONOCYTES # (AUTO) 0.6 (0.2-0.8); NEUTROPHILS % 72.8 % (38.7-80.0); PLATELET COUNT 85 x10e3/uL (140-360); RED BLOOD COUNT 4.01 x10e6/uL (4.3-5.7); RED CELL DISTRIBUTION WIDTH 13.1 % (11.7-14.4); WHITE BLOOD COUNT 5.48 x10e3/uL (4.8-10.8)
[2024-11-10 22:24] LABS: ALBUMIN 3.7 g/dL (3.5-5.0); ANION GAP 15.4 mmol/L (8-16); BILIRUBIN,TOTAL 0.4 mg/dL (0.2-1.2); CALCIUM 9.3 mg/dL (8.4-10.2); CREATININE, SERUM 1.31 mg/dL (0.72-1.25); TOTAL PROTEIN 7.3 g/dL (6.5-8.1)
[2024-11-10 22:29] LABS: POTASSIUM 3.4 mmol/L (3.5-5.1)
[2024-11-10 23:39] LABS: BILIRUBIN,URINE NEGATIVE (NEGATIVE); CLARITY,URINE CLEAR (CLEAR); COLOR,URINE YELLOW (YELLOW); GLUCOSE, URINE >=1000 (NEGATIVE); KETONES,URINE NEGATIVE (NEGATIVE); LEUKOCYTE ESTERASE ,URINE NEGATIVE (NEGATIVE); NITRITE,URINE NEGATIVE (NEGATIVE); PH,URINE 5.5 (5 - 7); PROTEIN,URINE DIPSTICK TRACE (NEGATIVE); URINE UROBILINOGEN 0.2 mg/dL (0.2 - 1)
[2024-11-11] VITALS (13 sets, daily range): BP systolic 138–159; BP diastolic 67–76; PULSE 74–97; RESP 18–19; TEMP 97.9–99; O2SAT 92–98
[2024-11-11 00:21] LABS: WBC,URINE (MAN) 0-5 /HPF (0-5)
[2024-11-11 00:22] LABS: BACTERIA,URINE MODERATE /HPF; EPITHELIAL CELLS,URINE FEW /LPF; RBC,URINE 0-5 /HPF (0-5)
[2024-11-11] MEDS ORDERED: ONDANSETRON HCL INJ 2MG/ML 2ML 2 MG/ML VIAL IV PRN (02:00)
[2024-11-11] MEDS ORDERED: ACETAMINOPHEN 325 MG TAB PO PRN (02:00)
[2024-11-11] MEDS ORDERED: DEXTROSE 50% SYRINGE 50 ML IV PRN (02:00)
[2024-11-11] MEDS: ALBUTEROL/IPRATROPIUM 3 ML NEB NEB SCH (03:54)
[2024-11-11] MEDS: SODIUM CHLORIDE 0.9% 1000ML 1,000 ML IV ONE (04:43)
[2024-11-11] MEDS: METHYLPREDNISOLONE SOD SUCC 40 MG/ML VIAL 1ML IV SCH (04:43)
[2024-11-11 06:00] LABS: TROPONIN I 0.005 ng/mL (0-0.300)
[2024-11-11] MEDS: INSULIN REGULAR, HUMAN 100 UNIT/1 ML SQ SCH (07:25)
[2024-11-11] MEDS: GUAIFENESIN/DEXTROMETHORPHAN LIQD 5 ML UDC NG SCH (12:23)
[2024-11-11] MEDS: AMLODIPINE BESYLATE 10 MG TAB PO SCH (12:24)
[2024-11-11 14:32] LABS: TROPONIN I 0.01 ng/mL (0-0.300)
[2024-11-11] MEDS: BENZONATATE 100 MG CAP PO SCH (16:12)
[2024-11-11] MEDS ORDERED: AMLODIPINE BESYLATE 10 MG TAB PO SCH (17:00)
[2024-11-11] MEDS: APIXABAN 5 MG TABLET PO SCH (17:04)
[2024-11-11] MEDS: ATORVASTATIN 10 MG TAB PO SCH (21:49)
[2024-11-11] MEDS: PRAMIPEXOLE DIHYDROCHLORIDE 0.25 MG TAB PO SCH (21:49)
[2024-11-12] VITALS (15 sets, daily range): BP systolic 123–163; BP diastolic 71–87; PULSE 67–97; RESP 15–19; TEMP 97.4–98.6; O2SAT 94–100
[2024-11-12 06:11] LABS: HEMOGLOBIN 11.3 g/dL (14.0-18.0); LYMPHOCYTES # (AUTO) 0.8 (1.0-3.2); LYMPHOCYTES % 12.7 % (18.0-39.1); MEAN CORPUSCULAR HEMOGLOBIN 31.1 pg (28-32); MEAN CORPUSCULAR HGB CONC 33.2 g/dL (31-35); MEAN CORPUSCULAR VOLUME 93.7 fL (81-99); MONOCYTES # (AUTO) 0.6 (0.2-0.8); NEUTROPHILS # (AUTO) 4.8 (2.1-6.9); PLATELET COUNT 85 x10e3/uL (140-360); RED BLOOD COUNT 3.63 x10e6/uL (4.3-5.7); RED CELL DISTRIBUTION WIDTH 13.4 % (11.7-14.4); WHITE BLOOD COUNT 6.23 x10e3/uL (4.8-10.8)
[2024-11-12 06:42] LABS: ALBUMIN 3.3 g/dL (3.5-5.0); ALBUMIN/GLOBULIN RATIO 1.1 (0.8-2.0); ANION GAP 14.8 mmol/L (8-16); BILIRUBIN,TOTAL 0.2 mg/dL (0.2-1.2); CREATININE, SERUM 1.18 mg/dL (0.72-1.25); POTASSIUM 3.8 mmol/L (3.5-5.1); TOTAL PROTEIN 6.4 g/dL (6.5-8.1)
[2024-11-12] MEDS: ALLOPURINOL 300 MG TAB PO SCH (08:42)
[2024-11-12] MEDS: DUTASTERIDE 0.5 MG CAP PO SCH (08:43)
[2024-11-12] MEDS: METOPROLOL SUCCINATE 50 MG TAB XL PO SCH (08:43)
[2024-11-12] MEDS: PANTOPRAZOLE SOD 40 MG TABEC PO SCH (08:44)
[2024-11-13] VITALS (12 sets, daily range): BP systolic 143–169; BP diastolic 72–84; PULSE 68–90; RESP 16–20; TEMP 97.5–98; O2SAT 94–100
[2024-11-13 10:20] LABS: CHOL/HDL RATIO 2.9 (3.9-4.7)
[2024-11-13] MEDS: SODIUM BICARBONATE 650 MG TAB PO SCH ×2 (14:59→21:27)
[2024-11-14 02:16] VITALS: PULSE 66; RESP 18; O2SAT 100
[2024-11-14 05:32] LABS: HEMATOCRIT 38.8 % (38.2-49.6); HEMOGLOBIN 12.2 g/dL (14.0-18.0); LYMPHOCYTES # (AUTO) 0.7 (1.0-3.2); LYMPHOCYTES % 11.9 % (18.0-39.1); MEAN CORPUSCULAR HEMOGLOBIN 31.4 pg (28-32); MEAN CORPUSCULAR HGB CONC 31.4 g/dL (31-35); MEAN CORPUSCULAR VOLUME 99.7 fL (81-99); MONOCYTES # (AUTO) 0.3 (0.2-0.8); MONOCYTES % 4.2 % (4.4-11.3); NEUTROPHILS # (AUTO) 5.2 (2.1-6.9); NEUTROPHILS % 83.4 % (38.7-80.0); PLATELET COUNT 105 x10e3/uL (140-360); RED BLOOD COUNT 3.89 x10e6/uL (4.3-5.7); WHITE BLOOD COUNT 6.24 x10e3/uL (4.8-10.8)
[2024-11-14 06:04] LABS: ANION GAP 16.4 mmol/L (8-16); CALCIUM 9.4 mg/dL (8.4-10.2); CREATININE, SERUM 1.11 mg/dL (0.72-1.25); POTASSIUM 4.4 mmol/L (3.5-5.1)
[2024-11-14] MEDS ORDERED: PREDNISONE20 MG PO (08:35)
[2024-11-14] MEDS ORDERED: BENZONATATE100 MG PO (08:35)
[2024-11-14] MEDS ORDERED: CEPHALEXIN500 MG PO (08:35)
[2024-11-14] MEDS ORDERED: SODIUM BICARBO650 MG PO (08:35)
[2024-11-14] MEDS ORDERED: LORATADINE10 MG PO (08:35)
[2024-11-14 09:00] VITALS: BP 147/72; PULSE 87; RESP 20; TEMP 97.5; O2SAT 97
[2024-11-14 09:12] VITALS: PULSE 64; RESP 18; O2SAT 94
[2024-11-14 09:26] VITALS: BP 147/72; PULSE 87; RESP 20; TEMP 97.5; O2SAT 97
[2024-11-14 11:16] VITALS: PULSE 68; RESP 18; O2SAT 99
[2024-11-14 12:48] VITALS: BP 146/79; PULSE 70; RESP 19; TEMP 97.7; O2SAT 99
== END 2024-11-14 12:15 | disposition home or self-care (01) | DRG 202 ==
LOC: ER 22:07 → ERHOLD 11-11 01:52 → MED/SURG2 11-11 05:03 → OBSVTOIN 11-11 15:40
PROVIDERS: ADMIT Internal Medicine; ATTEND Internal Medicine
DX: J20.9 Acute bronchitis, unspecified (principal); E87.21 Acute metabolic acidosis; N17.9 Acute kidney failure, unspecified; N39.0 Urinary tract infection, site not specified; J44.1 Chronic obstructive pulmonary disease with (acute) exacerbation; J06.9 Acute upper respiratory infection, unspecified; D69.59 Other secondary thrombocytopenia; E11.9 Type 2 diabetes mellitus without complications; I10 Essential (primary) hypertension; E78.5 Hyperlipidemia, unspecified; K21.9 Gastro-esophageal reflux disease without esophagitis; N40.0 Benign prostatic hyperplasia without lower urinary tract symptoms; M10.9 Gout, unspecified; R53.1 Weakness; Z11.52 Encounter for screening for COVID-19; Z79.01 Long term (current) use of anticoagulants; Z79.84 Long term (current) use of oral hypoglycemic drugs; Z86.711 Personal history of pulmonary embolism
CPT/HCPCS: 36415; 70450; 71045; 80048; 80053; 80061; 81001; 82550; 82948; 83036; 83880; 84484; 85025; 93005; 94799; 96372; 99284; J0696; J2919; J7030; J7050